=== PATIENT | female | born 1945 | race Caucasian/White ===

== ENCOUNTER 2021-03-06 16:12 | Emergency (ER) | payer MEDICARE, SELFPAY ==
[2021-03-06 16:22] VITALS: BP 146/71; PULSE 102; RESP 16; TEMP 36.4; O2SAT 99
--- NOTE | 2021-03-06 16:29 | ED.FEMALEGU ---
HPI - Female Genitourinary General Chief complaint: Urogenital-Female Stated complaint: POS UTI Time Seen by Provider: 03/06/21 16:25 Source: patient, RN notes reviewed and old records reviewed Mode of arrival: ambulatory Limitations: no limitations History of Present Illness HPI Narrative: 75-year-old female who presents to care with complaints of perineal pressure with burning with urination for the past 3 days. 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 Patient denies any fevers, chills or sweats, denies any flank pain or any lower abdominal pain, nausea or any vomiting. Related Data Home Medications Medication Instructions Recorded Confirmed Klor-Con 03/06/21 Zetia 03/06/21 hydrochlorothiazide 03/06/21 Allergies Allergy/AdvReac Type Severity Reaction Status Date / Time Sulfa (Sulfonamide Allergy Unknown Verified 03/06/21 16:23 Antibiotics) Review of Systems Review of Systems: CONSTITUTIONAL: Denies fever, chills, or sweats. EYES: Denies visual changes, redness, or discharge. ENT: Denies rhinorrhea, congestion, sore throat, or otalgia. CARDIOVASCULAR: Denies chest pain, palpitations, or edema. RESPIRATORY: Denies cough or dyspnea. GASTROINTESTINAL: Denies abdominal pain, nausea, vomiting, or diarrhea. GENITOURINARY: Positive for dysuria or hematuria. SKIN: Denies rash or itching. MUSCULOSKELETAL: Denies back pain, joint pain, or myalgia. NEUROLOGIC: Denies headache, numbness, or weakness. PSYCHIATRIC: Denies anxiety or depression. All systems reviewed & are unremarkable except as noted in HPI and below PMFSH Past Medical History Medical History (Updated 03/06/21 @ 16:57 by Anita Adair NP) Elevated lipids Hypertension Lichen planus Surgical History Surgical History (Updated 03/06/21 @ 16:58 by Anita Adair NP) H/O breast biopsy H/O: hysterectomy Family History Family History (Updated 03/06/21 @ 16:58 by Anita Adair NP) Other Family history non-contributory Social History Social History (Updated 03/06/21 @ 16:57 by Anita Adair NP) Smoking status: Never smoker Alcohol intake: current Alcohol use details: rare alcohol Substance use type: does not use Living arrangements: with family Gender identity (if verbalized by the patient): Female Comments At time of signature, agree with nursing past medical, surgical, social and family history. There is no relevant family history pertinent to the presenting complaint Exam Narrative: GENERAL: Well-appearing, well-nourished, and in no acute distress. HEAD: Normocephalic, atraumatic. EYES: PERRLA and EOMI. ENT: Nares clear, no rhinorrhea or epistaxis. Mucous membranes moist. TM's normal with good light reflex, throat pink with no lesions or exudates,no tonsil enlargement. NECK: Supple.no lymphadenopathy CHEST: Clear to auscultation. No respiratory distress. SaO2 99% on room air HEART: Regular rate and rhythm. No murmur heard. Normal peripheral pulses. ABDOMEN: Soft, nontender, nondistended, normal active bowel sounds.pressure sensation in perineal area with burning with urination EXTREMITIES: Normal range of motion. No edema. SKIN: Warm, dry, no rash. NEURO: No focal deficits. Alert and oriented x3, no flank pain MDM - Female Genitourinary Differential Diagnosis Differential diagnosis: Likely urinary tract infection, cervicitis, vaginitis, cystitis and other (Dysuria) Medical Records Attestation: I reviewed the patient's medical records. Lab Data Attestation: I reviewed the patient's lab results. Lab results narrative: Urine dip; glucose negative, bilirubin negative, ketones negative, specific gravity greater than or equal to 1.030, blood 2+, pH 5.5, protein negative, uro bilirubin 0.2, nit
== END 2021-03-06 16:46 | disposition home or self-care (01) ==
PROVIDERS: Emergency Provider Registered Nurse
DX: N39.0 Urinary tract infection, site not specified (principal); I10 Essential (primary) hypertension; L43.9 Lichen planus, unspecified
CPT/HCPCS: 81003; 87077; 87086; 87186; 99213; G0463

== ENCOUNTER 2021-07-11 10:04 | Emergency (ER) | payer MEDICARE, SELFPAY ==
--- NOTE | 2021-07-11 10:10 | ED.FEMALEGU ---
HPI - Female Genitourinary General Chief complaint: Urogenital-Female Stated complaint: Urinary pain Time Seen by Provider: 07/11/21 10:15 Source: patient Mode of arrival: ambulatory Limitations: no limitations History of Present Illness HPI Narrative: Jessica Hernandez is a 75 yo female w PMH of high cholesterol, HTN, who comes with c/o buring and frequency of urination x 2 days. Related Data Home Medications Medication Instructions Recorded Confirmed Klor-Con 03/06/21 Zetia 03/06/21 hydrochlorothiazide 03/06/21 Allergies Allergy/AdvReac Type Severity Reaction Status Date / Time Sulfa (Sulfonamide Allergy Unknown Verified 03/06/21 16:23 Antibiotics) Review of Systems Review of Systems: CONSTITUTIONAL: Denies fever, chills, sweats. EYES: Denies visual changes, redness, discharge. ENT: Denies rhinorrhea, congestion, sore throat, otalgia. CARDIOVASCULAR: Denies chest pain, palpitations, edema. RESPIRATORY: Has dyspnea, wheezing, cough GASTROINTESTINAL: Denies abdominal pain, nausea, vomiting, diarrhea. GENITOURINARY: Denies dysuria, hematuria, abnormal discharge SKIN: Denies rash or itching. NEUROLOGIC: Denies numbness, or focal weakness. PSYCHIATRIC: Denies anxiety or depression. PMFSH Past Medical History Medical History Elevated lipids Hypertension Lichen planus Surgical History Surgical History H/O breast biopsy H/O: hysterectomy Family History Family History Other Family history non-contributory Social History Social History Smoking status: Never smoker Alcohol intake: current Alcohol use details: rare alcohol Substance use type: does not use Gender identity (if verbalized by the patient): Female Exam Narrative: GENERAL: This is a well-nourished, well-developed patient, in mild distress. HEAD: normocephalic, atraumatic. EYES: Sclera clear/white. Vision is grossly intact. EARS: External ears normal. Hearing grossly intact. NOSE: External nose normal without nasal discharge, nares without redness, no rhinorrhea. THROAT: Mucous membranes moist, p NECK: Neck supple, non-tender CARDIOVASCULAR: Regular rate and rhythm without murmurs, gallops, or rubs. RESPIRATORY: Clear to auscultation. Breath sounds equal bilaterally. No wheezes, rales, or rhonchi. GASTROINTESTINAL: Abdomen soft, SKIN: warm, intact with no suspicious lesions or rash, good texture and turgor. NEURO: awake, alert, and oriented to person, place and time. There were no obvious focal neurologic abnormalities. Steady gait EXTREMITIES: Normal range of motion. BACK: Nontender without deformity Course Course Emergency Course: Patient comes with [facility]uria to [facility] x2 days UA shows nitate +, leuk 2+, + blood Treated with augmentin x 7 days Level of Care: Express Care Visit Vital Signs Vital signs: Vital Signs Temperature 97.2 F L 07/11/21 10:13 Pulse Rate 107 H 07/11/21 10:13 Respiratory Rate 16 07/11/21 10:13 Blood Pressure 167/87 H 07/11/21 10:13 Pulse Oximetry 98 07/11/21 10:13 Temperature 97.2 F L 07/11/21 10:13 Pulse Rate 107 H 07/11/21 10:13 Respiratory Rate 16 07/11/21 10:13 Blood Pressure 167/87 H 07/11/21 10:13 Pulse Oximetry 98 07/11/21 10:13 MDM - Female Genitourinary Differential Diagnosis Differential diagnosis: Likely urinary tract infection, cystitis and other Lab Data Labs: Urine Glucose Negative Reference Range: Negative Urine Bilirubin Negative Reference Range: Negative Urine Ketone Negative Reference Range: Negative Urine Spe
[2021-07-11 10:13] VITALS: BP 167/87; PULSE 107; RESP 16; TEMP 36.2; O2SAT 98
== END 2021-07-11 10:35 | disposition home or self-care (01) ==
PROVIDERS: Emergency Provider Nurse Practitioner
DX: N30.90 Cystitis, unspecified without hematuria (principal); I10 Essential (primary) hypertension; E78.00 Pure hypercholesterolemia, unspecified; L43.9 Lichen planus, unspecified
CPT/HCPCS: 81003; 87077; 87086; 87186; 99213; G0463

== ENCOUNTER 2022-05-06 13:21 | Emergency (ER) | payer MEDICARE, SELFPAY ==
[2022-05-06 13:31] VITALS: BP 155/65; PULSE 105; RESP 16; TEMP 36.4; O2SAT 99
[2022-05-06 13:32] VITALS: BP 155/65; PULSE 105; RESP 16; TEMP 36.4; O2SAT 99
--- NOTE | 2022-05-06 13:53 | ED.GENADULT ---
HPI - General Adult General Chief complaint: Back Pain/Injury Stated complaint: lt leg/ buttock pain Time Seen by Provider: 05/06/22 13:39 Source: patient Mode of arrival: wheelchair Limitations: no limitations History of Present Illness HPI narrative: This patient presents today complaining of pain to her left buttock radiating to her left calf x2 days, worse since yesterday. Denies back pain, numbness or tingling in the extremities or genitalia, denies loss of bowel or bladder control. Denies any injury or trauma, heavy lifting. She currently rates her pain 4/10 while sitting, because increases to 10/10 with standing. She has been taking Tylenol, ibuprofen, and using [id number] back pain patches with some mild relief. Denies history of chronic back pain. Related Data Home Medications Medication Instructions Recorded Confirmed ezetimibe 10 mg tablet 10 mg PO DAILY 05/06/22 05/06/22 hydrochlorothiazide 25 mg tablet 25 mg PO DAILY 05/06/22 05/06/22 potassium chloride 10 mEq 10 meq PO DAILY 05/06/22 05/06/22 tablet,extended release(part/cryst) (Klor-Con M) Allergies Allergy/AdvReac Type Severity Reaction Status Date / Time Sulfa (Sulfonamide Allergy Unknown Verified 05/06/22 13:30 Antibiotics) Review of Systems Review of Systems: CONSTITUTIONAL: Denies body aches, fever, chills, or sweats. EYES: Denies visual changes, redness, or discharge. ENT: Denies rhinorrhea, congestion, sore throat, or otalgia. CARDIOVASCULAR: Denies chest pain, palpitations, or edema. RESPIRATORY: Denies cough or dyspnea. GASTROINTESTINAL: Denies abdominal pain, nausea, vomiting, or diarrhea. GENITOURINARY: Denies dysuria or hematuria. SKIN: Denies rash, itching, or wounds. MUSCULOSKELETAL: Denies back pain, joint pain. + pain to left buttock and left leg NEUROLOGIC: Denies headache, numbness, tingling, or weakness. PSYCH: Denies depression or anxiety. [facility] Past Medical History Medical History Elevated lipids Hypertension Lichen planus Surgical History Surgical History H/O breast biopsy H/O: hysterectomy Family History Family History Other Family history non-contributory Social History Social History Smoking status: Never smoker Alcohol intake: current Alcohol use details: rare alcohol Substance use type: does not use Living arrangements: with family Gender identity (if verbalized by the patient): Female Comments At time of signature, I have reviewed and agree with nursing past medical, surgical, social and family history unless otherwise noted. Please see nursing chart for further information. There is no relevant family history pertinent to the presenting complaint Exam Narrative: GENERAL: Well-appearing, well-nourished, and in no acute distress. HEAD: Normocephalic, atraumatic. EYES: EOMI. No redness or drainage. Conjunctivae normal. ENT: Mucous membranes pink and moist. NECK: Normal AROM. CHEST: No respiratory distress. MUSCULOSKELETAL: No bony tenderness of the spine. No lumbar paraspinal muscle tenderness. Patient has tenderness of the left buttock radiating down the left leg with palpation. Patient has significant pain in the left leg when asked to go from sitting to standing position. Distal sensation intact. Saddle sensation intact. Capillary refill normal. Pedal pulses normal. Foot push and pulls equal and strong. EXTREMITIES: Normal range of motion. No edema. SKIN: Warm, dry, no rash. Capillary refill normal. Normal skin turgor. NEURO: No focal deficits. Alert and oriented x3. Gait steady. PSYCH: Normal affect. No signs of depression or anxiety. Course Course Level of Care: Express Care Visit Vital Signs Vital signs:
== END 2022-05-06 14:02 | disposition home or self-care (01) ==
PROVIDERS: Emergency Provider Nurse Practitioner; PCP Internal Medicine
DX: M54.32 Sciatica, left side (principal); I10 Essential (primary) hypertension; L43.9 Lichen planus, unspecified
CPT/HCPCS: 99213; G0463

== ENCOUNTER 2024-02-20 13:36 | Observation (INO) | payer MEDICARE, SELFPAY ==
[2024-02-20] VITALS (36 sets, daily range): BP systolic 110–153; BP diastolic 61–116; PULSE 64–101; RESP 12–25; TEMP 36.4–36.6; O2SAT 96–100; BMI 26.1
--- NOTE | ~2024-02-20 | XR_ITS ---
XR chest 2V Ordering provider: Trini Castro History: 78 years Female with . CP . Comparison: None. FINDINGS: MEDIASTINUM: The cardiac silhouette is not enlarged. LUNGS: No infiltrates, effusions or pneumothorax. Fibrotic changes are seen in the lower lobes. OTHER: No free air under the diaphragm. Degenerative spine. IMPRESSION: No acute cardiopulmonary pathology. Reviewed, dictated and finalized at location A. R VEHICLES SUPERVISOR
--- NOTE | ~2024-02-20 | CT_ITS ---
EXAMINATION: CTA chest PE protocol DATE: 02/22/2024 12:46 INDICATION: Chest pain. Shortness of breath. TECHNIQUE: Computed tomography angiography (CTA) of the chest was performed with 100 mL Omnipaque-350 intravenous contrast timed to evaluate the pulmonary arteries. Coronal maximum intensity projection 3D-reconstructions were created by the technologist. Automated exposure control and iterative reconst ruction technique were employed. The dose-length product was 370.28 mGy-cm. COMPARISON: Chest 2 views 02/20/2024 FINDINGS: There is mild scarring at the lung apices. There is mild atelectasis bilaterally. No pleura l effusion. There is a 10 mm nodule in right thyroid lobe, not clinically significant. The heart size is normal. No pericardial effusion. There is no pulmonary embolus. There is mild mediastinal and lef t hilar lymphadenopathy, likely reactive. There is a small sliding hiatal hernia. There are gallstone s versus sludge in the gallbladder. There is moderate thoracic spondylosis and severe cervical spondy losis. IMPRESSION: 1. No pulmonary embolus. Reviewed, dictated and finalized at location A. ECT SURVEYOR IMPRESSION: 1. No pulmonary embolus.
--- NOTE | ~2024-02-20 | NM_ITS ---
EXAMINATION: NM ron stress w perfusion DATE: 02/21/2024 13:57 INDICATION: Chest pain. TECHNIQUE: Rest images were obtained following intravenous administration of 11 mCi Tc99m tetrofosmin (Myoview). The patient was infused intravenously with Lexiscan (regadenoson). Then, 33.7 mCi Tc99m t etrofosmin (Myoview) was administered intravenously, and stress images were obtained. Data was recons tructed into short axis and horizontal and vertical long axis SPECT images. Gated SPECT images were a lso obtained. COMPARISON: None. FINDINGS: There is no definite reversible or fixed perfusion abnormality to suggest ischemia or infar ction. There is no segmental wall motion abnormality. Left ventricular ejection fraction measures > 70%. IMPRESSION: 1. No definite ischemia or infarct. 2. Normal left ventricular ejection fraction measuring >70%. Reviewed, dictated and finalized at location A. OR DIRECTOR FINANCE
--- NOTE | 2024-02-20 13:38 | ECG_ITS ---
Test Date: 2024-02-20 13:47:40 Measurements Intervals [place] Rate: 92 P: 54 [place]: 166 QRS: 25 QRSD: 92 T: 29 QT: 364 QTc: 452 Interpretive Statements SINUS RHYTHM WITH FREQUENT VENTRICULAR PREMATURE COMPLEXES INCOMPLETE RIGHT BUNDLE BRANCH BLOCK BORDERLINE ST-T WAVE ABNORMALITY- INFERIOR LEADS BASELINE ARTIFACT- I, II, III, AVR, AVL, AVF ABNORMAL ECG No previous ECG available for comparison Electronically Signed On 02-20-2024 14:23:27 LOCKSTITCH COAT JOINER by Eduin Cristina D.O.
--- NOTE | 2024-02-20 14:19 | ED_ITS ---
HPI - SOB/Dyspnea General Chief Complaint: Shortness of Breath/Dyspnea <Trini Castro PA-C - Last Filed: 02/21/24 11:05> Stated Complaint: SOB, palpitations <Trini Castro PA-C - Last Filed: 02/21/24 11:05> Time Seen by Provider: 02/20/24 14:19 <Trini Castro PA-C - Last Filed: 02/21/24 11:05> Focused HPI: This is a 78 year old female that presents to the ER for shortness of breath. Reports she feels like her heart races and is irregular. Reports weakness, pressure in her chest. Ongoing over the last 4 days. GENERAL: Elderly, well-nourished, and in no acute distress. HEAD: Normocephalic, atraumatic. CHEST: Clear to auscultation. ?No respiratory distress. HEART: Regular rate and rhythm.? NEURO: ?Alert and oriented x3. Patient screened in triage and initial orders placed.? ?Additional care and di sposition to be based upon?diagnostic testing and treatment. <Trini Castro PA-C - Last Filed: 02/21/24 11:05> History of Present Illness HPI Narrative: Agree with HPI. Exertional chest and back tightness over last 4-5 days. No diaphoresis. No history of cardiac disease. Does have history of hypertension. Symptoms improved with rest. Feels like she may have an irregula r heartbeat, she does have PVCs in the room but she does not feel them when questioned. <Matt Butler MD - Last Filed: 02/20/24 22:04> Related Data Home Medications: Home Medications Medication Instructions Recorded Confirmed ezetimibe 10 mg tablet 10 mg PO DAILY 05/06/22 02/20/24 hydrochlorothiazide 25 mg tablet 25 mg PO DAILY 05/06/22 02/20/24 potassium chloride 10 mEq 10 meq PO BID 05/06/22 02/20/24 tablet,extended release(part/cryst) (Klor-Con M) cholecalciferol (vitamin D3) 50 50 mcg PO DAILY 02/20/24 02/20/24 mcg (2,000 unit) capsule (Vitamin D3) <Trini Castro PA-C - Last Filed: 02/21/24 11:05> Allergies/Adverse Reactions: Allergies Allergy/AdvReac Type Severity Reaction Status Date / Time Sulfa (Sulfonamide Allergy Rash Verified 02/20/24 22:48 Antibiotics) <Trini Castro PA-C - Last Filed: 02/21/24 11:05> Review of Systems Review of Systems: All systems reviewed & are unremarkable except as noted in HPI and below <Matt Butler MD - Last Filed: 02/20/24 22:04> Constitutional: Constitutional: Reports no additional constitutional complaints <Matt Butler MD - Last Filed: 02/20/24 22:04> Cardiovascular: Cardiovascular: Reports chest pain, Denies rapid heart rate and Denies radiating jaw, neck or arm pain <Matt Butler MD - Last Filed: 02/20/24 22:04> Respiratory: Respiratory: Denies chest congestion, Denies cough, Reports dyspnea and Denies wheezing <Matt Butler MD - Last Filed: 02/20/24 22:04> Gastrointestinal: Gastrointestinal: Reports no additional gastrointestinal complaints <Matt Butler MD - Last Filed: 02/20/24 22:04> Genitourinary: Genitourinary: Reports no additional female genitourinary complaints <Matt Butler MD - Last Filed: 02/20/24 22:04> Musculoskeletal: Musculoskeletal: Reports no additional musculoskeletal complaints <Matt Butler MD - Last Filed: 02/20/24 22:04> [facility] Past Medical History Medical History: Medical History (Updated 02/21/24 @ 10:30 by Jesus Hensley MD) Elevated lipids Hypertension Lichen planus <Trini Castro PA-C - Last Filed: 02/21/24 11:05> Surgical History Surgical History: Surgical History H/O breast biopsy H/O: hysterectomy <Trini Castro PA-C - Last Filed: 02/21/24 11:05> Family History Family History: Family History Mother Cerebrovascular accident Diabetes mellitus Grandparent Cerebrovascular accident Father Hypertension Heart valve replaced Lung cancer Other Family history non-contributory <Trini Castro PA-C - Last Filed: 02/21/24 11:05> Social History Social History: Social History Smoking status: Never smoker Alcohol intake: current Alcohol use details: rare alcohol Substance use type: does not use Do You Feel Safe in your Home?: Yes Lack of Transportation: No Lack of Food: Never True Current Housing: I Have Housing Concerned About Future Housing: No Difficulty Paying Gas/Electric Bills: No Difficulty Paying for Meds: No Currently Unemployed: No Education: High School Diploma/GED Difficulty w/ Childcare or Family Care: No Living arrangements: with family Gender identity (if verbalized by the patient): Female Spiritual care concerns: No <Trini Castro PA-C - Last Filed: 02/21/24 11:05> Exam Narrative: GENERAL: Well-appearing, well-nourished, and in no acute distress. HEAD: Normocephalic, atraumatic. ENT: Mucous membranes moist. NECK: Supple. CHEST: Clear to auscultation. No respiratory distress. HEART: Regular rate and rhythm. Normal peripheral pulses. ABDOMEN: Soft, nontender, nondistended. EXTREMITIES: Normal range of motion. No edema. SKIN: Warm, dry, no rash. NEURO: Alert and oriented x3. PSYCH: Normal mood and affect. <Matt Butler MD - Last Filed: 02/20/24 22:04> Course Course Emergency Course: Discussed with Dr. Hensley. No chest pain this time. Admit for observation with elevated heart score concerns for anginal chest pain. <Matt Butler MD - Last Filed: 02/20/24 22:04> Vital Signs Vital signs: Vital Signs Temperature 97.5 F L 02/20/24 13:38 Pulse Rate 101 H 02/20/24 13:38 Respiratory Rate 15 02/20/24 13:38 Blood Pressure 153/95 H 02/20/24 13:38 Pulse Oximetry 99 02/20/24 13:38 Oxygen Delivery Room Air 02/20/24 13:38 Temperature 98 F 02/21/24 08:00 Pulse Rate 79 02/21/24 10:00 Respiratory Rate 16 02/21/24 08:00 Blood Pressure 106/54 L 02/21/24 08:00 Pulse Oximetry 100 02/21/24 08:00 Oxygen Delivery Room Air 02/21/24 08:00 <Trini Castro PA-C - Last Filed: 02/21/24 11:05> Vital Signs Temperature 97.5 F L 02/20/24 13:38 Pulse Rate 101 H 02/20/24 13:38 Respiratory Rate 15 02/20/24 13:38 Blood Pressure 153/95 H 02/20/24 13:38 Pulse Oximetry 99 02/20/24 13:38 Oxygen Delivery Room Air 02/20/24 13:38 Temperature 98 F 02/21/24 08:00 Pulse Rate 79 02/21/24 10:00 Respiratory Rate 16 02/21/24 08:00 Blood Pressure 106/54 L 02/21/24 08:00 Pulse Oximetry 100 02/21/24 08:00 Oxygen Delivery Room Air 02/21/24 08:00 <Matt Butler MD - Last Filed: 02/20/24 22:04> MDM - SOB/Dyspnea Lab Data Result diagrams: 02/20/24 17:02 02/20/24 17:02 <Trini Castro PA-C - Last Filed: 02/21/24 11:05> Labs: Lab Results 02/20/24 02/20/24 Range/Units 17:02 20:55 WBC 7.3 (4.5-10.0) K/mm3 RBC 4.35 (4.2-5.4) M/mm3 Hgb 13.3 (12.0-15.0) g/dL Hct 39.4 (37.0-47.0) % MCV 90.6 (80-100) fl MCH 30.6 (26-34) pg MCHC 33.8 (32-36) g/dl RDW 14.0 (11.5-14.5) % Plt Count 239 (150-375) k/mm3 MPV 11.9 H (7.4-10.4) fl Immature Gran % (Auto) 0.4 (0-0.5) % Neut % (Auto) 68.6 (45.5-73.1) % Lymph % (Auto) 21.1 (18.3-44.2) % Stevens % (Auto) 8.2 (2.6-8.5) % Eos % (Auto) 1.2 (0-4.4) % Baso % (Auto) 0.5 (0.2-1.2) % Lymph # (Auto) 1.54 (0.9-3.2) K/mm3 Stevens # (Auto) 0.6 (0.1-0.6) K/mm3 Eos # (Auto) 0.1 (0-0.3) K/mm3 Baso # (Auto) 0.0 (0.0-0.1) K/mm3 Abs Immat Gran (auto) 0.03 (0.00-0.031) K/mm3 Absolute Neuts (auto) 5.0 (1.3-6.7) K/mm3 Absolute Nucleated RBC 0.000 (0.0-0.012) K/mm3 Nucleated RBC % 0.0 (0.0-0.2) % PT 14.0 (11.1-14.7) Seconds INR 1.1 APTT 27.9 (22.3-36.8) Seconds Sodium 136 L (137-145) mmol/L Potassium 3.3 L (3.4-5.0) mmol/L Chloride 100 (98-107) mmol/L Carbon Dioxide 30 (22-30) mmol/L Anion Gap 6 (4-12) mmol/L BUN 20 H (7-17) mg/dL Creatinine 0.80 (0.7-1.0) mg/dL Estim Creat Clear Calc 42 ml/min Estimated GFR > 60 (59 - ) Glucose 99 (65-110) mg/dL Calcium 9.1 (8.4-10.2) mg/dL Phosphorus 3.1 (2.5-4.5) mg/dL Magnesium 1.8 (1.6-2.3) mg/dL Total Bilirubin 0.7 (0.2-1.3) mg/dL AST 44 H (14-36) U/L ALT 18 (6-35) U/L Alkaline Phosphatase 91 (38-126) U/L Troponin I < 0.012 < 0.012 (0.000-0.034) ng/mL Total Protein 8.0 (6.3-8.2) g/dL Albumin 4.5 (3.5-5.1) g/dL Triglycerides 154 H (<150) mg/dL Cholesterol 197 (0-200) mg/dL LDL Cholesterol Direct 107 mg/dL HDL Direct 46 mg/dL Lipase 146 (23-300) U/L TSH (Reflex) 2.680 (0.465-4.68) uIU/mL <Trini Castro PA-C - Last Filed: 02/21/24 11:05> Lab Results 02/20/24 02/20/24 Range/Units 17:02 20:55 WBC 7.3 (4.5-10.0) K/mm3 RBC 4.35 (4.2-5.4) M/mm3 Hgb 13.3 (12.0-15.0) g/dL Hct 39.4 (37.0-47.0) % MCV 90.6 (80-100) fl MCH 30.6 (26-34) pg MCHC 33.8 (32-36) g/dl RDW 14.0 (11.5-14.5) % Plt Count 239 (150-375) k/mm3 MPV 11.9 H (7.4-10.4) fl Immature Gran % (Auto) 0.4 (0-0.5) % Neut % (Auto) 68.6 (45.5-73.1) % Lymph % (Auto) 21.1 (18.3-44.2) % Stevens % (Auto) 8.2 (2.6-8.5) % Eos % (Auto) 1.2 (0-4.4) % Baso % (Auto) 0.5 (0.2-1.2) % Lymph # (Auto) 1.54 (0.9-3.2) K/mm3 Stevens # (Auto) 0.6 (0.1-0.6) K/mm3 Eos # (Auto) 0.1 (0-0.3) K/mm3 Baso # (Auto) 0.0 (0.0-0.1) K/mm3 Abs Immat Gran (auto) 0.03 (0.00-0.031) K/mm3 Absolute Neuts (auto) 5.0 (1.3-6.7) K/mm3 Absolute Nucleated RBC 0.000 (0.0-0.012) K/mm3 Nucleated RBC % 0.0 (0.0-0.2) % PT 14.0 (11.1-14.7) Seconds INR 1.1 APTT 27.9 (22.3-36.8) Seconds Sodium 136 L (137-145) mmol/L Potassium 3.3 L (3.4-5.0) mmol/L Chloride 100 (98-107) mmol/L Carbon Dioxide 30 (22-30) mmol/L Anion Gap 6 (4-12) mmol/L BUN 20 H (7-17) mg/dL Creatinine 0.80 (0.7-1.0) mg/dL Estim Creat Clear Calc 42 ml/min Estimated GFR > 60 (59 - ) Glucose 99 (65-110) mg/dL Calcium 9.1 (8.4-10.2) mg/dL Phosphorus 3.1 (2.5-4.5) mg/dL Magnesium 1.8 (1.6-2.3) mg/dL Total Bilirubin 0.7 (0.2-1.3) mg/dL AST 44 H (14-36) U/L ALT 18 (6-35) U/L Alkaline Phosphatase 91 (38-126) U/L Troponin I < 0.012 < 0.012 (0.000-0.034) ng/mL Total Protein 8.0 (6.3-8.2) g/dL Albumin 4.5 (3.5-5.1) g/dL Triglycerides 154 H (<150) mg/dL Cholesterol 197 (0-200) mg/dL LDL Cholesterol Direct 107 mg/dL HDL Direct 46 mg/dL Lipase 146 (23-300) U/L TSH (Reflex) 2.680 (0.465-4.68) uIU/mL <Matt Butler MD - Last Filed: 02/20/24 22:04> Imaging Data Radiologist's impression: ITS Impressions Chest X-Ray 02/20/24 15:33 IMPRESSION: No acute cardiopulmonary pathology. <Matt Butler MD - Last Filed: 02/20/24 22:04> ECG Data EKG #1: ECG completion date: 02/20/24 <Matt Butler MD - Last Filed: 02/20/24 22:04> ECG completion time: 13:47 <Matt Butler MD - Last Filed: 02/20/24 22:04> EKG Interpretation: normal rate (92), sinus rhythm, PVCs, normal QRS, normal QT and NL axis <Matt Butler MD - Last Filed: 02/20/24 22:04> Critical Care Time Critical Care Time Critical Care Time: No <Trini Castro PA-C - Last Filed: 02/21/24 11:05> Discharge Plan Discharge Clinical Impression: Angina of effort <Trini Castro PA-C - Last Filed: 02/21/24 11:05> Patient Disposition: Still a Patient <Trini Castro PA-C - Last Filed: 02/21/24 11:05> Condition: Stable <Trini Castro PA-C - Last Filed: 02/21/24 11:05> Quality HEART score for chest pain patients History: moderately suspicious <Matt Butler MD - Last Filed: 02/20/24 22:04> ECG: non specific repolarization disturbance/LBTB/PM <Matt Butler MD - Last Filed: 02/20/24 22:04> Age: > or = to 65 years <Matt Butler MD - Last Filed: 02/20/24 22:04> Risk factors: 1 or 2 risk factors <Matt Butler MD - Last Filed: 02/20/24 22:04> Troponin: < or = to 1x normal limit <Matt Butler MD - Last Filed: 02/20/24 22 :04> Heart score: 5 <Trini Castro PA-C - Last Filed: 02/21/24 11:05> 5 <Matt Butler MD - Last Filed: 02/20/24 22:04>
[2024-02-20 17:07] LABS: Basophils Percent Auto 0.5 % (0.2-1.2); Eosinophils Absolute Auto 0.1 K/mm3 (0-0.3); Eosinophils Percent Auto 1.2 % (0-4.4); Hematocrit 39.4 % (37.0-47.0); Hemoglobin 13.3 g/dL (12.0-15.0); Immature Granulocyte Absolute 0.03 K/mm3 (0.00-0.031); Immature Granulocyte Percent A 0.4 % (0-0.5); Lymphocytes Absolute Auto 1.54 K/mm3 (0.9-3.2); Lymphocytes Percent Auto 21.1 % (18.3-44.2); Mean Corpuscular HGB Conc 33.8 g/dl (32-36); Mean Corpuscular Hemoglobin 30.6 pg (26-34); Mean Corpuscular Volume 90.6 fl (80-100); Mean Platelet Volume 11.9 fl (7.4-10.4); Monocytes Absolute Auto 0.6 K/mm3 (0.1-0.6); Monocytes Percent Auto 8.2 % (2.6-8.5); Neutrophils Percent Auto 68.6 % (45.5-73.1); Platelet Count Result 239 k/mm3 (150-375); Red Blood Count 4.35 M/mm3 (4.2-5.4); White Blood Count 7.3 K/mm3 (4.5-10.0)
[2024-02-20 17:17] LABS: Alanine Aminotransferase 18 U/L (6-35); Albumin Level 4.5 g/dL (3.5-5.1); Alkaline Phosphatase 91 U/L (38-126); Anion Gap 6 mmol/L (4-12); Aspartate Amino Transferase 44 U/L (14-36); Bilirubin,Total 0.7 mg/dL (0.2-1.3); Blood Urea Nitrogen 20 mg/dL (7-17); Calcium 9.1 mg/dL (8.4-10.2); Carbon Dioxide 30 mmol/L (22-30); Chloride 100 mmol/L (98-107); Estimated CRCL calculation 42 ml/min; Estimated Glomerular Filt Rate > 60; Glucose 99 mg/dL (65-110); Lipase 146 U/L (23-300); Potassium 3.3 mmol/L (3.4-5.0); Sodium 136 mmol/L (137-145)
[2024-02-20 17:18] LABS: INR 1.1; Partial Thromboplastin Time 27.9 Seconds (22.3-36.8)
[2024-02-20 17:29] LABS: Troponin I < 0.012 ng/mL (0.000-0.034)
--- NOTE | 2024-02-20 20:02 | ECG_ITS ---
Test Date: 2024-02-20 20:30:34 Measurements Intervals [place] Rate: 68 P: 54 [place]: 174 QRS: 28 QRSD: 98 T: 20 QT: 408 QTc: 436 Interpretive Statements SINUS RHYTHM INCOMPLETE RIGHT BUNDLE BRANCH BLOCK BASELINE ARTIFACT- I, III, AVL BORDERLINE ECG Compared to ECG 02/20/2024 13:47:40 PREMATURE VENTRICULAR COMPLEXES NO LONGER PRESENT Electronically Signed On 02-20-2024 20:33:40 HEADING UP MACHINE OPERATOR by Eduin Cristina D.O.
[2024-02-20 21:28] LABS: Troponin I < 0.012 ng/mL (0.000-0.034)
--- NOTE | 2024-02-20 21:52 | EST_ITS ---
Patient Info Name: Jessica Claudio Age: 78 years : 1945 Gender: Female Ht: 64 in Wt: 154 lbs BSA: 1.79 m2 HR: 82 bpm BP: 140 / 74 mmHg Exam Date: 02/21/2024 12:23 PM Exam Location: Echo Lab Patient Status: Outpatient Admit Date: 02/20/2024 Staff Ordering Physician: Matt Butler MD Attending Provider: Gissell Trujillo DO Exercise Technologist: Liza BE [facility] Exercise Physician: Jesus Hensley MD Exam Type: CA stress ron w NM Study Info A regadenoson stress test was performed. Summary 1. Please correlate with nuclear medicine images, reported separately. 2. No abnormal ST-T wave changes with lexiscan. Protocol: Lexiscan Stress ECG Details Stage: REST Duration (min): 1 min : 48 sec HR (bpm): 79 SBP (mmHg): 140 DBP (mmHg): 74 Stage: REST Duration (min): 8 min : 17 sec HR (bpm): 86 SBP (mmHg): 140 DBP (mmHg): 74 Stage: STAGE 1 Duration (min): 1 min : 0 sec HR (bpm): 117 SBP (mmHg): 125 DBP (mmHg): 69 Stage: RECOVERY Duration (min): 1 min : 0 sec HR (bpm): 125 SBP (mmHg): 125 DBP (mmHg): 69 Stage: RECOVERY Duration (min): 2 min : 0 sec HR (bpm): 122 SBP (mmHg): 125 DBP (mmHg): 69 Stage: RECOVERY Duration (min): 3 min : 0 sec HR (bpm): 114 SBP (mmHg): 133 DBP (mmHg): 67 Stage: RECOVERY Duration (min): 4 min : 0 sec HR (bpm): 114 SBP (mmHg): 133 DBP (mmHg): 67 Stage: RECOVERY Duration (min): 4 min : 21 sec HR (bpm): 116 SBP (mmHg): 133 DBP (mmHg): 67 Rest HR: 86 bpm Peak HR: 126 bpm Rest Sys BP: 140 mmHg Peak Sys BP: 133 mmHg Max Pred HR: 140 bpm % Max Pred HR: 90 % Target HR: 119 bpm Max RPP: 16,758 bpm*mmHg BP Response: Normal blood pressure response Termination Reason: Completed protocol Cardiac Symptoms: None Total Time: 1 min : 0 sec Rest Adams BP: 74 mmHg Peak Adams BP: 67 mmHg Total Dose: 0.4 mg Resting ECG Normal sinus rhythm. PVCs. Stress ECG No abnormal ST/T wave changes with exercise. Arrhythmias Frequent PVCs. Report Signatures
[2024-02-20] MEDS: POTASSIUM CHLORIDE 20 MEQ ER TABLET 40 MEQ PO (22:10)
[2024-02-20] MEDS: ACETAMINOPHEN 325 MG TABLET 650 MG PO (23:06)
--- NOTE | 2024-02-20 23:32 | ADMGEN ---
2325: This patient, Jessica Claudio, was admitted to IMU Room 201-01. Patient/family oriented to hospital policies and general routines including ID bracelet, bed and alarms, visiting hours, pain management, procedures, bathroom and other care routines, personal items, smoking policy, room service/diet, and visiting hours. Information on how to activate the Rapid Response Team has been discussed. Patient/Family are encouraged to report perceived risks to care and to ask questions if they do not understand what they are told or what they should do.
[2024-02-20 23:39] LABS: Cholesterol 197 mg/dL (0-200); HDL Direct 46 mg/dL; Magnesium 1.8 mg/dL (1.6-2.3); Phosphorus 3.1 mg/dL (2.5-4.5); Triglycerides 154 mg/dL (<150)
[2024-02-20 23:50] LABS: LDL Cholesterol Direct 107 mg/dL
[2024-02-21] VITALS (17 sets, daily range): BP systolic 106–122; BP diastolic 49–66; PULSE 61–85; RESP 16–18; TEMP 36.5–37; O2SAT 94–100
--- NOTE | 2024-02-21 08:25 | PM.IMHP ---
H&P: HPI History of Present Illness Date/Time: 02/21/24 08:25 Chief Complaint: Shortness breath, palpitation and chest tightness Narrative: 78 years old lady with history of hypertension, hyperlipidemia, present ED with a chief complaint of shortness breath, palpitation. Patient has been having intermittent palpitation, shortness breast in past 3 days, and patient also has some chest tightness with exertion. Patient denies fever, chills. Patient also denies lightheadedness, focal weakness, abdomen pain, nausea vomiting diarrhea dysuria fever or chills. Upon arrival in the ED, patient was afebrile, blood pressure stable, patient is a tachycardia, pulse ox 99 on room air, lab showed med hyponatremia 136, hypokalemia 3.3, elevated BUN creatinine ratio 20/0.8. EKG showed sinus rhythm, PVCs, chest x-ray showed no acute cardiopulmonary issues. Troponins x2 negative. Review of Systems Review of Systems: ROS negative except above [facility] Past Medical History Medical History (Updated 02/21/24 @ 10:30 by Jesus Hensley MD) Elevated lipids Hypertension Lichen planus Surgical History Surgical History H/O breast biopsy H/O: hysterectomy Family History Family History Mother Cerebrovascular accident Diabetes mellitus Grandparent Cerebrovascular accident Father Hypertension Heart valve replaced Lung cancer Other Family history non-contributory Social History Social History Smoking status: Never smoker Alcohol intake: current Alcohol use details: rare alcohol Substance use type: does not use Do You Feel Safe in your Home?: Yes Lack of Transportation: No Lack of Food: Never True Current Housing: I Have Housing Concerned About Future Housing: No Difficulty Paying Gas/Electric Bills: No Difficulty Paying for Meds: No Currently Unemployed: No Education: High School Diploma/GED Difficulty w/ Childcare or Family Care: No Living arrangements: with family Gender identity (if verbalized by the patient): Female Spiritual care concerns: No Meds Home Medications and Allergies Home Medications Medication Instructions Recorded Confirmed Type ezetimibe 10 mg tablet 10 mg PO DAILY 05/06/22 02/20/24 History hydrochlorothiazide 25 mg tablet 25 mg PO DAILY 05/06/22 02/20/24 History potassium chloride 10 mEq 10 meq PO BID 05/06/22 02/20/24 History tablet,extended release(part/cryst) (Klor-Con M) cholecalciferol (vitamin D3) 50 50 mcg PO DAILY 02/20/24 02/20/24 History mcg (2,000 unit) capsule (Vitamin D3) Allergies Allergy/AdvReac Type Severity Reaction Status Date / Time Sulfa (Sulfonamide Allergy Rash Verified 02/20/24 22:48 Antibiotics) Vital Signs Vital Signs - 24 hr 02/20/24 13:38 02/20/24 16:29 02/20/24 16:29 Temperature 97.5 F L Pulse Rate 101 H 98 Respiratory Rate 15 Blood Pressure 153/95 H Pulse Oximetry 99 Oxygen Delivery Room Air Room Air 02/20/24 18:00 02/20/24 16:05 02/20/24 16:16 Temperature 97.9 F Pulse Rate 82 77 69 Respiratory Rate 16 16 15 Blood Pressure 126/80 136/69 146/61 H Pulse Oximetry 98 99 100 Oxygen Delivery 02/20/24 17:02 02/20/24 19:55 02/20/24 18:59 Temperature 97.9 F Pulse Rate 76 71 Respiratory Rate 12 17 Blood Pressure 146/67 H 120/64 129/62 Pulse Oximetry 99 97 Oxygen Delivery 02/20/24 19:00 02/20/24 19:01 02/20/24 19:15 Temperature Pulse Rate 75 90 72 Respiratory Rate 16 25 H 14 Blood Pressure 122/68 Pulse Oximetry 100 98 96 Oxygen Delivery 02/20/24 19:30 02/20/24 19:31 02/20/24 19:45 Temperature Pulse Rate 73 71 75 Respiratory Rate 13 14 15 Blood Pressure 123/63 Pulse Oximetry 96 96 96 Oxygen Delivery 02/20/24 23:17 02/20/24 20:00 02/20/24 20:01 Temperature 97.9 F Pulse Rate 80 71 72 Respiratory Rate 16 13 16 Blood Pressure 110/98 H 128/70 Pulse Oximetry 97 98 97 Oxygen Delivery 02/20/24 20:15 02/20/24 20:30 02/20/24 20:45 Temperature Pulse Rate 79 73 81 Respiratory Rate 15 13 16 Blood Pressure 140/64 Pulse Oximetry 97 98 Oxygen Delivery 02/20/24 20:58 02/20/24 21:00 02/20/24 21:01 Temperature Pulse Rate 68 68 73 Respiratory Rate 14 13 13 Blood Pressure 147/72 H 148/72 H Pulse Oximetry 99 98 97 Oxygen Delivery 02/20/24 21:15 02/20/24 21:30 02/20/24 21:31 Temperature Pulse Rate 72 77 76 Respiratory Rate 13 18 15 Blood Pressure 141/86 H Pulse Oximetry 96 99 98 Oxygen Delivery 02/20/24 21:45 02/20/24 22:00 02/20/24 22:01 Temperature Pulse Rate 71 73 72 Respiratory Rate 16 14 16 Blood Pressure 133/116 H Pulse Oximetry 98 96 99 Oxygen Delivery 02/20/24 22:15 02/20/24 22:30 02/20/24 22:31 Temperature Pulse Rate 75 72 64 Respiratory Rate 15 12 12 Blood Pressure 135/75 Pulse Oximetry 97 96 99 Oxygen Delivery 02/20/24 22:45 02/20/24 23:00 02/20/24 23:01 Temperature Pulse Rate 76 78 72 Respiratory Rate 15 13 14 Blood Pressure 140/64 Pulse Oximetry 98 96 99 Oxygen Delivery 02/20/24 23:33 02/21/24 00:00 02/21/24 02:00 Temperature 97.6 F Pulse Rate 67 71 68 Respiratory Rate 18 Blood Pressure 149/61 H Pulse Oximetry 99 Oxygen Delivery 02/21/24 04:00 02/21/24 05:36 Temperature 97.7 F Pulse Rate 71 74 Respiratory Rate 18 Blood Pressure 108/61 Pulse Oximetry 95 Oxygen Delivery Exam Narrative: GENERAL: Pleasant, in no acute distress. Well-nourished. - EYES: EOMI. Anicteric. - HENT: Moist mucous membranes. - LUNGS: Clear to auscultation bilaterally, no wheezing, rhonchi, or rales. - CARDIOVASCULAR: Regular rate and rhythm. No murmur. No JVD. - ABDOMEN: Soft, non-tender and non-distended. No palpable masses. - EXTREMITIES: No edema. Peripheral pulses 2+. Non-tender. - NEUROLOGIC: No focal neurological deficits. CN II-XII grossly intact. - PSYCHIATRIC: Awake, Alert and oriented x 3. Appropriate mood and affect. - SKIN: No rashes or lesions. Warm. - LYMPH: No cervical lymphadenopathy. H&P: Results Labs Labs: Short CBC 02/20/24 Range/Units 17:02 WBC 7.3 (4.5-10.0) K/mm3 Hgb 13.3 (12.0-15.0) g/dL Hct 39.4 (37.0-47.0) % Plt Count 239 (150-375) k/mm3 BMP 02/20/24 17:02 Sodium 136 L Potassium 3.3 L Chloride 100 Carbon Dioxide 30 BUN 20 H Creatinine 0.80 Glucose 99 Calcium 9.1 Cardiac Enzymes 02/20/24 02/20/24 Range/Units 17:02 20:55 Troponin I < 0.012 < 0.012 (0.000-0.034) ng/mL Liver Function 02/20/24 Range/Units 17:02 Total Bilirubin 0.7 (0.2-1.3) mg/dL AST 44 H (14-36) U/L ALT 18 (6-35) U/L Alkaline Phosphatase 91 (38-126) U/L Albumin 4.5 (3.5-5.1) g/dL Assessment and Plan Assessment and plan (1) Palpitations: Code(s): R00.2 - Palpitations Status: Acute (2) Dyspnea on exertion: Code(s): R06.09 - Other forms of dyspnea Status: Acute (3) Chest tightness: Code(s): R07.89 - Other chest pain Status: Acute (4) Hypertension: Code(s): I10 - Essential (primary) hypertension Status: Acute (5) Hyperlipidemia LDL goal <70: Code(s): E78.5 - Hyperlipidemia, unspecified Status: Acute Plan Chest tightness, palpitation, shortness breast On video rental clerk, 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 p.o. Follow-up stress test Essential hypertension Continue hydrochlorothiazide 25 mg daily p.o. start metoprolol 25 mg q.12 hours p.o. Optimize medication for better blood pressure control Hyperlipidemia Continue Ezetimibe 10 mg daily p.o. Continue Lipitor 20 mg daily p.o. Follow-up lipid panel Hospitalist MIPS Advance Care Plan I have confirmed that the patient's Advanced Care Plan is present, code status is documented, or surrogate decision maker is listed in patient medical record.: Yes Medication Reconciliation The patient is not eligible for med reconciliation; the patient is in a emergent medical situation where delaying treatment would jeopardize the patients health.: Yes
--- NOTE | 2024-02-21 08:33 | ECHO_ITS ---
Patient Info Name: Jessica Claudio Age: 78 years : 1945 Gender: Female Ht: 64 in Wt: 154 lbs BSA: 1.79 m2 HR: 88 bpm Heart Rhythm: Sinus Rhythm Technical Quality: Good Exam Date: 02/21/2024 10:53 AM Exam Location: Echo Lab Patient Status: Inpatient Admit Date: 02/20/2024 Staff Ordering Physician: Shannan Hernandez MD Care Director Rn: Tasha Staples RDCS Attending Provider: Gissell Trujillo DO Exam Type: CA echo doppler color flow Study Info Complete two-dimensional, color flow and Doppler transthoracic echocardiogram is performed. Summary 1. Complete two-dimensional, color flow and Doppler transthoracic echocardiogram is performed. 2. Left ventricular chamber dimension is normal. 3. Left ventricular systolic function is normal, estimated at 65-70%. 4. There is mildly increased left ventricular wall thickness. 5. The left ventricular diastolic function is grade I diastolic dysfunction. 6. Left atrial chamber dimension is mildly enlarged. 7. There is mild to moderate mitral valve regurgitation. 8. The mitral valve annulus is moderately calcified. 9. 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 10. There is mild tricuspid valve regurgitation. 11. There is mild aortic valve calcification. Left Ventricle Left ventricular chamber dimension is normal. Left ventricular systolic function is normal, estimated at 65-70%. There is mildly increased left ventricular wall thickness. The left ventricular diastolic function is grade I diastolic dysfunction. Right Ventricle Right ventricular chamber dimension is normal. Right ventricular systolic function is normal. Left Atria Left atrial chamber dimension is mildly enlarged. Right Atria Right atrial chamber dimension is normal. Aortic Valve The aortic valve is trileaflet. There is no aortic valve stenosis. There is trace aortic valve regurgitation. There is mild aortic valve calcification. Pulmonic Valve The pulmonic valve is normal. There is no pulmonic valve stenosis. There is trace pulmonic regurgitation. 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 There is no mitral valve stenosis. There is mild to moderate mitral valve regurgitation. The mitral valve annulus is moderately calcified. Tricuspid Valve The tricuspid valve leaflets are normal. There is no significant tricuspid valve stenosis. There is mild tricuspid valve regurgitation. No pulmonary hypertension, estimated pulmonary arterial systolic pressure is 30 mmHg. Pericardium/Pleural The pericardium appears normal. There is no pericardial effusion. Inferior Vena Cava Normal inferior vena cava with >50% collapse upon inspiration consistent with normal right atrial pressure, 10 mmHg. Aorta The aortic root size at the sinus of Valsalva is normal. Left Ventricular Outflow Tract Name Value Normal LVOT 2D LVOT Diameter 1.9 cm LVOT Doppler LVOT Peak Velocity 89 cm/s LVOT Peak Gradient 3 mmHg LVOT Mean Gradient 2 mmHg LVOT VTI 18 cm LVOT VTI/AV VTI Ratio 0.6 LVOT Stroke Volume 51 ml LVOT CO 4.4 l/min LVOT CI 2.5 l/min/m2 Pulmonic Valve Name Value Normal PV Doppler PV Peak Velocity 104 cm/s PV Peak Gradient 4 mmHg Mitral Valve Name Value Normal MV Doppler MV Peak Gradient 9 mmHg MV Mean Gradient 4 mmHg MV Decel Juab 675 cm/s2 MV PHT 43 ms MV Area (PHT) 5.1 cm2 4.0-5.0 MV Area (Cont Eq VTI) 1.4 cm2 MV Regurgitation Doppler MR Peak Gradient 113 mmHg MV Diastolic Function MV E Peak Velocity 100 cm/s MV A Peak Velocity 115 cm/s MV E/A 0.9 MV Decel Time 148 ms MV Annular TDI MV Septal e' Velocity 5.5 cm/s >=8.0 MV E/e' (Septal) 18.3 <=8.0 MV Lateral e' Velocity 6.7 cm/s >=10.0 MV E/e' (Lateral) 14.9 <=8.0 MV e' Average 6.08 MV E/e' (Average) 16.6 Tricuspid Valve Name Value Normal TV Regurgitation Doppler TR Peak Velocity 226 cm/s TR Peak Gradient 12 mmHg Estimated PAP/RSVP RA Pressure 10 mmHg <=5 PA Systolic Pressure 30 mmHg <36 RV Systolic Pressure 30 mmHg <36 TV Annular TDI TV Lateral Sabrina s' Velocity 13.4 cm/s 9.5-18.7 Aortic Valve Name Value Normal AV Doppler AV Peak Velocity 155 cm/s AV Peak Gradient 10 mmHg AV Mean Gradient 6 mmHg AV VTI 30 cm AV Area (Cont Eq VTI) 1.7 cm2 >=3.0 AV Area (Cont Eq Scott) 1.6 cm2 AV V1/V2 Ratio 0.57 AV Regurgitation 2D LVOT Area 2.8 cm2 Ventricles Name Value Normal LV Dimensions 2D/MM IVS Diastolic Thickness (2D) 1.1 cm 0.6-1.0 LVID Diastole (2D) 3.2 cm 3.8-5.2 LVIW Diastolic Thickness (2D) 1.0 cm 0.6-0.9 LVID Systole (2D) 2.0 cm 2.2-3.5 LVOT Diameter 1.9 cm LV Mass (2D Cubed) 94.79 g 67.00-162.00 LV Mass Index (2D Cubed) 53 g/m2 43-95 Relative Wall Thickness (2D) 0.63 LV Fractional Shortening/Ejection Fraction 2D/MM LV Fractional Shortening (2D) 38 % 27-45 LV EF (2D Teicholz) 69 % 54-74 LV Diastolic Volume (4C MOD) 68 ml LV EF (4C MOD) 59 % LV Diastolic Volume (2C MOD) 51 ml LV EF (2C MOD) 68 % LV Diastolic Volume (BP MOD) 60 ml 46-106 LV Diastolic Volume Index (BP MOD) 34 ml/m2 29-61 LV Systolic Volume (BP MOD) 21 ml 14-42 LV Systolic Volume Index (BP MOD) 12 ml/m2 8-24 LV EF (BP MOD) 65 % 54-74 LV Diastolic Length (4C) 7.4 cm LV Systolic Length (4C) 5.4 cm LV Stroke Volume (4C MOD) 40 ml Atria Name Value Normal LA Dimensions LA Volume (4C A-L) 22 ml LA Volume (BP A-L) 27 ml RA Dimensions RA Area (4C) 10.1 cm2 <=18.0 Report Signatures
[2024-02-21] MEDS: POTASSIUM CHLORIDE 10 MEQ ER TABLET PO ×2 (09:11→16:55)
[2024-02-21] MEDS: hydroCHLOROthiazide 25 MG TABLET PO (09:11)
[2024-02-21] MEDS: EZETIMIBE 10 MG TABLET PO (09:11)
[2024-02-21] MEDS: CHOLECALCIFEROL 1,000 UNITS TABLET 2000 UNITS PO (09:11)
[2024-02-21] MEDS: ENOXAPARIN 40 MG/0.4 ML SYRINGE SUB-Q (09:12)
[2024-02-21 09:31] LABS: NT Pro B Type Natriuretic Pept 207 pg/mL (19.9-100)
[2024-02-21 09:48] LABS: D Dimer 0.28 ug/mL (<0.48)
--- NOTE | 2024-02-21 10:24 | P.CONCA_ITS ---
Assessment and Plan Assessment and plan (1) Chest tightness: Code(s): R07.89 - Other chest pain Status: Acute Assessment and Plan: Possible angina versus heart failure versus pulmonology versus other. Agree wi th D-dimer. Would actually recommend a CT scan chest with and without contrast but will defer this to the hospitalist. Stress test is already ordered and it is reasonable to pursue. Would like to get a 2D echocardiogram Doppler performed for so and if she does have wall motion abnormalities or ca rdiomyopathy, recommendation will be to proceed directly to a cardiac catheterization rather than a stress test. In the meantime start aspirin 81 mg daily, atorvastatin 20 mg daily. Add metoprolol tartrate 25 mg p.o. b.i.d. (2) Dyspnea on exertion: Code(s): R06.09 - Other forms of dyspnea Status: Acute Assessment and Plan: As above. Possible anginal equivalent, heart failure, pulmonology versus other. (3) Palpitations: Code(s): R00.2 - Palpitations Status: Acute Assessment and Plan: Frequent PVC seen on telemetry but the PVCs seem to be asymptomatic (4) Hyperlipidemia LDL goal <70: Code(s): E78.5 - Hyperlipidemia, unspecified Status: Acute Assessment and Plan: Will add atorvastatin (5) Hypertension: Code(s): I10 - Essential (primary) hypertension Status: Acute Assessment and Plan: Adding metoprolol for her PVCs, hypertension and chest pain History of Present Illness History of Present Illness Consult date/time: 02/21/24 10:24 Requesting physician: Shannan Hernandez MD Consult reason: Other (Angina) Reason For Visit: angina Narrative: Reason for consultation: Angina Date of service 02/21/2024 Requesting provider: Dr. Hernandez History: Patient is an 78-year-old female who has a history of hypertension hyperlipidemia who has been feeling poorly for the past 5-6 days. She states that she started to feel very weak and felt as if her heart was racing. This predominantly occurred with activity. She also had some associated shortness of breath with activity and some exertional chest tightness which radiates into her back. She notices this predominantly with exertion and symptoms improve at rest. She does feel a sense shortness of breath even while sitting though. She has not had similar symptoms in the past. She denies any edema, syncope, presyncope, paroxysmal nocturnal dyspnea, orthopnea. EKG does not show acute ST or T-wave abnormalities. Telemetry does show frequent PVCs but she is asymptomatic during these PVCs seen on monitor while performed history and physical. Troponins are negative. Review of Systems Review of Systems: All systems reviewed & are unremarkable except as noted in HPI and below Constitutional: Constitutional: Denies body ache(s) Eyes: Eyes: Denies blurry vision ENT: Reports Normal hearing present Cardiovascular: Cardiovascular: Reports chest pain Respiratory: Respiratory: Reports dyspnea and Reports dyspnea on exertion Gastrointestinal: Gastrointestinal: Denies abdominal pain Genitourinary: Genitourinary: Denies hematuria Musculoskeletal: Musculoskeletal: Denies back pain Integumentary/Breasts: Skin/Breast: Denies pruritus Neurologic: Denies Abnormal speech present Psychiatric: Psychiatric: Denies anxiety Endocrine: Endocrine: Denies excessive sweating Hematologic/Lymphatic: Hematologic/Lymphatic: Denies easy bleeding Allergic/Immunologic: Allergic/Immunologic: Denies GI upset with certain foods PMFSH Past Medical History Medical History (Updated 02/21/24 @ 10:30 by Jesus Hensley MD) Elevated lipids Hypertension [place] planus Surgical History Surgical History H/O breast biopsy H/O: hysterectomy Family History Family History Mother Cerebrovascular accident Diabetes mellitus Grandparent Cerebrovascular accident Father Hypertension Heart valve replaced Lung cancer Other Family history non-contributory Social History Social History Smoking status: Never smoker Alcohol intake: current Alcohol use details: rare alcohol Substance use type: does not use Do You Feel Safe in your Home?: Yes Lack of Transportation: No Lack of Food: Never True Current Housing: I Have Housing Concerned About Future Housing: No Difficulty Paying Gas/Electric Bills: No Difficulty Paying for Meds: No Currently Unemployed: No Education: High School Diploma/GED Difficulty w/ Childcare or Family Care: No Living arrangements: with family Gender identity (if verbalized by the patient): Female Spiritual care concerns: No Meds Home Medications and Allergies Home Medications Medication Instructions Recorded Confirmed Type ezetimibe 10 mg tablet 10 mg PO DAILY 05/06/22 02/20/24 History hydrochlorothiazide 25 mg tablet 25 mg PO DAILY 05/06/22 02/20/24 History potassium chloride 10 mEq 10 meq PO BID 05/06/22 02/20/24 History tablet,extended release(part/cryst) (Klor-Con M) cholecalciferol (vitamin D3) 50 50 mcg PO DAILY 02/20/24 02/20/24 History mcg (2,000 unit) capsule (Vitamin D3) Allergies Allergy/AdvReac Type Severity Reaction Status Date / Time Sulfa (Sulfonamide Allergy Rash Verified 02/20/24 22:48 Antibiotics) Vital Signs Vital Signs - 24 hr 02/20/24 13:38 02/20/24 16:29 02/20/24 16:29 Temperature 36.4 C L Pulse Rate 101 H 98 Respiratory Rate 15 Blood Pressure 153/95 H Pulse Oximetry 99 Oxygen Delivery Room Air Room Air 02/20/24 18:00 02/20/24 16:05 02/20/24 16:16 Temperature 36.6 C Pulse Rate 82 77 69 Respiratory Rate 16 16 15 Blood Pressure 126/80 136/69 146/61 H Pulse Oximetry 98 99 100 Oxygen Delivery 02/20/24 17:02 02/20/24 19:55 02/20/24 18:59 Temperature 36.6 C Pulse Rate 76 71 Respiratory Rate 12 17 Blood Pressure 146/67 H 120/64 129/62 Pulse Oximetry 99 97 Oxygen Delivery 02/20/24 19:00 02/20/24 19:01 02/20/24 19:15 Temperature Pulse Rate 75 90 72 Respiratory Rate 16 25 H 14 Blood Pressure 122/68 Pulse Oximetry 100 98 96 Oxygen Delivery 02/20/24 19:30 02/20/24 19:31 02/20/24 19:45 Temperature Pulse Rate 73 71 75 Respiratory Rate 13 14 15 Blood Pressure 123/63 Pulse Oximetry 96 96 96 Oxygen Delivery 02/20/24 23:17 02/20/24 20:00 02/20/24 20:01 Temperature 36.6 C Pulse Rate 80 71 72 Respiratory Rate 16 13 16 Blood Pressure 110/98 H 128/70 Pulse Oximetry 97 98 97 Oxygen Delivery 02/20/24 20:15 02/20/24 20:30 02/20/24 20:45 Temperature Pulse Rate 79 73 81 Respiratory Rate 15 13 16 Blood Pressure 140/64 Pulse Oximetry 97 98 Oxygen Delivery 02/20/24 20:58 02/20/24 21:00 02/20/24 21:01 Temperature Pulse Rate 68 68 73 Respiratory Rate 14 13 13 Blood Pressure 147/72 H 148/72 H Pulse Oximetry 99 98 97 Oxygen Delivery 02/20/24 21:15 02/20/24 21:30 02/20/24 21:31 Temperature Pulse Rate 72 77 76 Respiratory Rate 13 18 15 Blood Pressure 141/86 H Pulse Oximetry 96 99 98 Oxygen Delivery 02/20/24 21:45 02/20/24 22:00 02/20/24 22:01 Temperature Pulse Rate 71 73 72 Respiratory Rate 16 14 16 Blood Pressure 133/116 H Pulse Oximetry 98 96 99 Oxygen Delivery 02/20/24 22:15 02/20/24 22:30 02/20/24 22:31 Temperature Pulse Rate 75 72 64 Respiratory Rate 15 12 12 Blood Pressure 135/75 Pulse Oximetry 97 96 99 Oxygen Delivery 02/20/24 22:45 02/20/24 23:00 02/20/24 23:01 Temperature Pulse Rate 76 78 72 Respiratory Rate 15 13 14 Blood Pressure 140/64 Pulse Oximetry 98 96 99 Oxygen Delivery 02/20/24 23:33 02/21/24 00:00 02/21/24 02:00 Temperature 36.4 C Pulse Rate 67 71 68 Respiratory Rate 18 Blood Pressure 149/61 H Pulse Oximetry 99 Oxygen Delivery 02/21/24 04:00 02/21/24 05:36 02/21/24 07:59 Temperature 36.5 C Pulse Rate 71 74 Respiratory Rate 18 Blood Pressure 108/61 Pulse Oximetry 95 95 Oxygen Delivery Room Air 02/21/24 08:00 02/21/24 08:00 02/21/24 08:00 Temperature 36.6 C Pulse Rate 77 72 Respiratory Rate 16 Blood Pressure 106/54 L Pulse Oximetry 100 Oxygen Delivery Room Air 02/21/24 10:00 Temperature Pulse Rate 79 Respiratory Rate Blood Pressure Pulse Oximetry Oxygen Delivery Exam Narrative: Patient is awake alert oriented appears to be in no acute distress. Appears stated age Const: General: comfortable and no acute distress HENMT: Face/Nose/Sinus: Normal nares present Mouth: Yes moist mucous membranes Eyes: General: appearance normal, both eyes and all related structures Sclera: sclerae normal Neck: Neck: supple and no JVD Carotids: no bruits Chest: Other: No reproducible chest wall pain to palpation Resp: Effort & Inspection: normal respiratory effort Auscultation: clear to auscultation bilaterally Cardio: Rate: regular rate Rhythm: regular rhythm Heart sounds: no murmurs GI: Inspection: non-distended GI Palp: Yes Soft to palpation Auscultation: normal bowel sounds Skin: General skin exam: normal color and no rashes or lesions noted Neuro: General: gait normal Speech: normal speech Extrem: General: normal to inspection and no edema Psych: Mental Status: mental status grossly normal Affect: normal affect Results Labs and Meds 02/20/24 17:02 02/20/24 17:02 Lab results: Cardiac Enzymes 02/20/24 02/20/24 Range/Units 17:02 20:55 AST 44 H (14-36) U/L Troponin I < 0.012 < 0.012 (0.000-0.034) ng/mL Coagulation 02/20/24 Range/Units 17:02 PT 14.0 (11.1-14.7) Seconds APTT 27.9 (22.3-36.8) Seconds Lipids 02/20/24 Range/Units 20:55 Triglycerides 154 H (<150) mg/dL Cholesterol 197 (0-200) mg/dL CBC 02/20/24 Range/Units 17:02 WBC 7.3 (4.5-10.0) K/mm3 RBC 4.35 (4.2-5.4) M/mm3 Hgb 13.3 (12.0-15.0) g/dL Hct 39.4 (37.0-47.0) % Plt Count 239 (150-375) k/mm3 Lymph # (Auto) 1.54 (0.9-3.2) K/mm3 [place] # (Auto) 0.6 (0.1-0.6) K/mm3 Eos # (Auto) 0.1 (0-0.3) K/mm3 Baso # (Auto) 0.0 (0.0-0.1) K/mm3 Comprehensive Metabolic Panel 02/20/24 Range/Units 17:02 Sodium 136 L (137-145) mmol/L Potassium 3.3 L (3.4-5.0) mmol/L Chloride 100 (98-107) mmol/L Carbon Dioxide 30 (22-30) mmol/L BUN 20 H (7-17) mg/dL Creatinine 0.80 (0.7-1.0) mg/dL Glucose 99 (65-110) mg/dL Calcium 9.1 (8.4-10.2) mg/dL AST 44 H (14-36) U/L ALT 18 (6-35) U/L Alkaline Phosphatase 91 (38-126) U/L Total Protein 8.0 (6.3-8.2) g/dL Albumin 4.5 (3.5-5.1) g/dL Intake and Output 02/20/24 02/21/24 02/21/24 23:59 07:59 15:59 Output Total 0 Balance 0 Output: Urine 0 Other: Intake, Other Source NPO # Unmeasured Voids 2 Patient Weight 02/21/24 23:59 Weight 70.2 kg EKG personally reviewed and interpreted showing normal sinus rhythm, PVCs. Abnormal ECG
[2024-02-21] MEDS: ACETAMINOPHEN 325 MG TABLET 650 MG PO (15:11)
[2024-02-21] MEDS: METOPROLOL TARTRATE 25 MG TABLET PO (20:17)
[2024-02-21 23:20] LABS: Potassium 3.6 mmol/L (3.4-5.0)
[2024-02-22] VITALS (19 sets, daily range): BP systolic 100–125; BP diastolic 48–58; PULSE 64–86; RESP 16–18; TEMP 36.5–36.6; O2SAT 94–98
[2024-02-22] MEDS: hydroCHLOROthiazide 25 MG TABLET PO (08:30)
[2024-02-22] MEDS: ATORVASTATIN 20 MG TABLET PO (08:30)
[2024-02-22] MEDS: POTASSIUM CHLORIDE 10 MEQ ER TABLET PO ×2 (08:30→17:15)
[2024-02-22] MEDS: ENOXAPARIN 40 MG/0.4 ML SYRINGE SUB-Q (08:30)
[2024-02-22] MEDS: METOPROLOL TARTRATE 25 MG TABLET PO ×2 (08:30→20:18)
[2024-02-22] MEDS: CHOLECALCIFEROL 1,000 UNITS TABLET 2000 UNITS PO (08:30)
[2024-02-22] MEDS: ASPIRIN 81 MG ENTERIC TABLET PO (08:30)
--- NOTE | 2024-02-22 10:16 | P.PNIM_ITS ---
Progress Note: A&P Assessment and Plan (1) Palpitations: Code(s): R00.2 - Palpitations Status: Acute (2) Dyspnea on exertion: Code(s): R06.09 - Other forms of dyspnea Status: Acute (3) Chest tightness: Code(s): R07.89 - Other chest pain Status: Acute (4) Hypertension: Code(s): I10 - Essential (primary) hypertension Status: Acute (5) Hyperlipidemia LDL goal <70: Code(s): E78.5 - Hyperlipidemia, unspecified Status: Acute Plan Chest tightness, palpitation, shortness breast patient denies history of cardiac stent Has remote history of cardiac stress test, Patient has been having palpitation in past 3 days, associated with shortness breath and chest tightness Troponin negative EKG showed sinus rhythm echocardiogram Summary 1. Complete two-dimensional, color flow and Doppler transthoracic echocardiogram is performed. 2. Left ventricular chamber dimension is normal. 3. Left ventricular systolic function is normal, estimated at 65-70%. 4. There is mildly increased left ventricular wall thickness. 5. The left ventricular diastolic function is grade I diastolic dysfunction. 6. Left atrial chamber dimension is mildly enlarged. 7. There is mild to moderate mitral valve regurgitation. 8. The mitral valve annulus is moderately calcified. 9. 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 10. There is mild tricuspid valve regurgitation. 11. There is mild aortic valve calcification. Cardiac stress test 1. No definite ischemia or infarct. 2. Normal left ventricular ejection fraction measuring >70%. Received aspirin 325 mg once well continue aspirin 81 mg orally p.o., Follow CTA of the chest: No pulmonary embolus. Appreciate cardiology's input Cardiology has planned cardiac catheterization a.m. 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 p.o. Follow-up stress test Essential hypertension Continue hydrochlorothiazide 25 mg daily p.o. start metoprolol 25 mg q.12 hours p.o. Optimize medication for better blood pressure control Hyperlipidemia Continue Ezetimibe 10 mg daily p.o. Continue Lipitor 20 mg daily p.o. Follow-up lipid panel Subjective Date/time seen: 02/22/24 10:16 Interval history: I saw exam patient today, patient still has intermittent palpitation, denies shortness breath, lightheadedness, Exam Narrative: GENERAL: Pleasant, in no acute distress. Well-nourished. - EYES: EOMI. Anicteric. - HENT: Moist mucous membranes. - LUNGS: Clear to auscultation bilateral ly, no wheezing, rhonchi, or rales. - CARDIOVASCULAR: Regular rate and rhyth m. No murmur. No JVD. - ABDOMEN: Soft, non-tender and non-dist ended. No palpable masses. - EXTREMITIES: No edema. Peripheral puls es 2+. Non-tender. - NEUROLOGIC: No focal neurological defi cits. CN II-XII grossly intact. - PSYCHIATRIC: Awake, Alert and oriented x 3. Appropriate mood and affect. - SKIN: No rashes or lesions. Warm. - LYMPH: No cervical lymphadenopathy. Objective Data Vital Signs Vital Signs: Vital Signs - 24 hr 02/21/24 13:15 02/21/24 12:00 02/21/24 12:00 Temperature 98.6 F Pulse Rate 81 84 Respiratory Rate 16 Blood Pressure 122/66 Pulse Oximetry 100 Oxygen Delivery Room Air 02/21/24 14:00 02/21/24 16:00 02/21/24 16:00 Temperature Pulse Rate 85 79 Respiratory Rate Blood Pressure Pulse Oximetry Oxygen Delivery Room Air 02/21/24 16:00 02/21/24 18:00 02/21/24 20:09 Temperature 98.2 F 97.8 F Pulse Rate 84 81 77 Respiratory Rate 18 18 Blood Pressure 118/51 L 109/49 L Pulse Oximetry 94 94 Oxygen Delivery 02/21/24 20:17 02/21/24 20:00 02/21/24 20:00 Temperature Pulse Rate 81 61 Respiratory Rate Blood Pressure Pulse Oximetry Oxygen Delivery Room Air 02/21/24 22:00 02/21/24 23:40 02/22/24 00:00 Temperature 97.8 F Pulse Rate 66 75 Respiratory Rate 18 Blood Pressure 107/52 L Pulse Oximetry 94 Oxygen Delivery Room Air 02/22/24 00:00 02/22/24 02:00 02/22/24 03:51 Temperature 97.8 F Pulse Rate 65 65 68 Respiratory Rate 18 Blood Pressure 119/49 L Pulse Oximetry 98 Oxygen Delivery 02/22/24 04:00 02/22/24 04:00 02/22/24 06:00 Temperature Pulse Rate 66 65 Respiratory Rate Blood Pressure Pulse Oximetry Oxygen Delivery Room Air 02/22/24 07:47 02/22/24 08:30 02/22/24 08:45 Temperature 97.8 F Pulse Rate 68 76 Respiratory Rate 16 Blood Pressure 100/53 L Pulse Oximetry 94 96 Oxygen Delivery Room Air 02/22/24 08:00 02/22/24 08:00 Temperature Pulse Rate 82 82 Respiratory Rate 16 Blood Pressure Pulse Oximetry 96 Oxygen Delivery Room Air Intake/Output Intake/Output: Intake & Output 02/19/24 02/20/24 02/21/24 02/22/24 23:59 23:59 23:59 23:59 Intake Total 1200 790 Output Total 350 600 Balance 850 190 Meds/Results Medications: Active Medications Generic Name Dose Route Start Last Admin Trade Name Freq PRN Reason Stop Dose Admin Acetaminophen 650 mg 02/20/24 21:50 02/21/24 15:11 Acetaminophen 325 Mg Tablet PO 650 mg Q4H PRN Administration Mild Pain (1-3) or Fever Aspirin 81 mg 02/22/24 09:00 02/22/24 08:30 Aspirin 81 Mg Enteric Tablet PO 81 mg QAM DENNIS Administration Atorvastatin Calcium 20 mg 02/22/24 09:00 02/22/24 08:30 Atorvastatin 20 Mg Tablet PO 20 mg DAILY DENNIS Administration Ezetimibe 10 mg 02/21/24 09:00 02/22/24 08:31 Ezetimibe 10 Mg Tablet PO Not Given DAILY [facility] Enoxaparin Sodium 40 mg 02/21/24 09:00 02/22/24 08:30 Enoxaparin 40 Mg/0.4 Ml Syringe SUB-Q 40 mg DAILY DENNIS Administration Hydrochlorothiazide 25 mg 02/21/24 09:00 02/22/24 08:30 Hydrochlorothiazide 25 Mg Tablet PO 25 mg DAILY DENNIS Administration Metoprolol Tartrate 25 mg 02/21/24 21:00 02/22/24 08:30 Metoprolol Tartrate 25 Mg Tablet PO 25 mg Q12HR DENNIS Administration Ondansetron HCl 4 mg 02/20/24 21:50 Ondansetron Inj 4 Mg/2 Ml Vial IV PUSH Q4H PRN Nausea Perflutren Lipid Microsphere 0 ml 02/21/24 08:33 Perflutren Lipid Microspheres 1.5 Ml Vial Diluted To 10 Ml Total Volume IV PUSH 02/24/24 08:33 ONCE PRN adequate visualization Protocol Potassium Chloride 10 meq 02/21/24 09:00 02/22/24 08:30 Potassium Chloride 10 Meq Er Tablet PO 10 meq BID DENNIS Administration Vitamin D 2,000 units 02/21/24 09:00 02/22/24 08:30 Cholecalciferol 1,000 Units Tablet PO 2,000 units DAILY DENNIS Administration Radiology Results: ITS Impressions Chest X-Ray 02/20/24 15:33 IMPRESSION: No acute cardiopulmonary pathology. Lexiscan Stress Test 02/21/24 14:00 IMPRESSION: 1. No definite ischemia or infarct. 2. Normal left ventricular ejection fraction measuring >70%. Labs Labs: Laboratory Results - last 24 hr 02/21/24 22:19 Potassium 3.6
[2024-02-22 10:47] LABS: Hematocrit 39.8 % (37.0-47.0); Hemoglobin 13.5 g/dL (12.0-15.0); Mean Corpuscular HGB Conc 33.9 g/dl (32-36); Mean Corpuscular Hemoglobin 30.7 pg (26-34); Mean Corpuscular Volume 90.5 fl (80-100); Mean Platelet Volume 11.8 fl (7.4-10.4); Platelet Count Result 270 k/mm3 (150-375); Red Cell Distribution Width 14.1 % (11.5-14.5); White Blood Count 8.1 K/mm3 (4.5-10.0)
[2024-02-22 10:59] LABS: Anion Gap 8 mmol/L (4-12); Blood Urea Nitrogen 20 mg/dL (7-17); Calcium 9.8 mg/dL (8.4-10.2); Carbon Dioxide 29 mmol/L (22-30); Chloride 98 mmol/L (98-107); Estimated CRCL calculation 42 ml/min; Estimated Glomerular Filt Rate > 60; Glucose 104 mg/dL (65-110); Potassium 3.9 mmol/L (3.4-5.0); Sodium 135 mmol/L (137-145)
--- NOTE | 2024-02-22 14:23 | PM.PNCARD ---
Progress Note: A&P Assessment and Plan (1) Angina of effort: Code(s): I20.89 - Other forms of angina pectoris Status: Acute (2) Hypertension: Code(s): I10 - Essential (primary) hypertension Status: Acute (3) Hyperlipidemia LDL goal <70: Code(s): E78.5 - Hyperlipidemia, unspecified Status: Acute Plan 78-year-old woman with a history of hypertension hyperlipidemia presents with chest pain whose clinical presentation is concerning for angina Angina -symptoms have been improving with metoprolol -she was originally scheduled for left heart catheterization today however she had breakfast as well as lunch and will be rescheduled for tomorrow -please keep patient NPO past midnight Hypertension -blood pressure is well controlled on hydrochlorothiazide 25 mg p.o. daily -goal systolic blood pressure less than 130 Hyperlipidemia -continue atorvastatin 20 mg every evening and ezetimibe 10 mg p.o. daily Subjective Date/time seen: 02/22/24 14:23 Interval history: Her chest pain and improved with addition of metoprolol. Exam Const: General: comfortable HENMT: Mouth: Yes moist mucous membranes Eyes: EOM: EOMs intact bilaterally Neck: Neck: no JVD Resp: Effort & Inspection: normal respiratory effort Auscultation: clear to auscultation bilaterally Cardio: Rate: regular rate Rhythm: regular rhythm GI: GI Palp: Yes Soft to palpation Neuro: Speech: normal speech Psych: Affect: normal affect Objective Data Vital Signs Vital Signs: Vital Signs - 24 hr 02/21/24 16:00 02/21/24 16:00 02/21/24 16:00 Temperature 36.8 C Pulse Rate 79 84 Respiratory Rate 18 Blood Pressure 118/51 L Pulse Oximetry 94 Oxygen Delivery Room Air 02/21/24 18:00 02/21/24 20:09 02/21/24 20:17 Temperature 36.6 C Pulse Rate 81 77 81 Respiratory Rate 18 Blood Pressure 109/49 L Pulse Oximetry 94 Oxygen Delivery 02/21/24 20:00 02/21/24 20:00 02/21/24 22:00 Temperature Pulse Rate 61 66 Respiratory Rate Blood Pressure Pulse Oximetry Oxygen Delivery Room Air 02/21/24 23:40 02/22/24 00:00 02/22/24 00:00 Temperature 36.6 C Pulse Rate 75 65 Respiratory Rate 18 Blood Pressure 107/52 L Pulse Oximetry 94 Oxygen Delivery Room Air 02/22/24 02:00 02/22/24 03:51 02/22/24 04:00 Temperature 36.6 C Pulse Rate 65 68 Respiratory Rate 18 Blood Pressure 119/49 L Pulse Oximetry 98 Oxygen Delivery Room Air 02/22/24 04:00 02/22/24 06:00 02/22/24 07:47 Temperature 36.6 C Pulse Rate 66 65 68 Respiratory Rate 16 Blood Pressure 100/53 L Pulse Oximetry 94 Oxygen Delivery 02/22/24 08:30 02/22/24 08:45 02/22/24 08:00 Temperature Pulse Rate 76 82 Respiratory Rate 16 Blood Pressure Pulse Oximetry 96 96 Oxygen Delivery Room Air Room Air 02/22/24 08:00 02/22/24 11:14 Temperature 36.6 C Pulse Rate 82 73 Respiratory Rate 18 Blood Pressure 125/52 L Pulse Oximetry 97 Oxygen Delivery Intake/Output Intake/Output: Intake & Output 02/19/24 02/20/24 02/21/24 02/22/24 23:59 23:59 23:59 23:59 Intake Total 1200 1030 Output Total 350 600 Balance 850 430 Meds/Results Medications: Active Medications Generic Name Dose Route Start Last Admin Trade Name Freq PRN Reason Stop Dose Admin Acetaminophen 650 mg 02/20/24 21:50 02/21/24 15:11 Acetaminophen 325 Mg Tablet PO 650 mg Q4H PRN Administration Mild Pain (1-3) or Fever Aspirin 81 mg 02/22/24 09:00 02/22/24 08:30 Aspirin 81 Mg Enteric Tablet PO 81 mg QAM DENNIS Administration Atorvastatin Calcium 20 mg 02/22/24 09:00 02/22/24 08:30 Atorvastatin 20 Mg Tablet PO 20 mg DAILY DENNIS Administration Ezetimibe 10 mg 02/21/24 09:00 02/22/24 08:31 Ezetimibe 10 Mg Tablet PO Not Given DAILY [facility] Enoxaparin Sodium 40 mg 02/21/24 09:00 02/22/24 08:30 Enoxaparin 40 Mg/0.4 Ml Syringe SUB-Q 40 mg DAILY DENNIS Administration Hydrochlorothiazide 25 mg 02/21/24 09:00 02/22/24 08:30 Hydrochlorothiazide 25 Mg Tablet PO 25 mg DAILY DENNIS Administration Metoprolol Tartrate 25 mg 02/21/24 21:00 02/22/24 08:30 Metoprolol Tartrate 25 Mg Tablet PO 25 mg Q12HR DENNIS Administration Ondansetron HCl 4 mg 02/20/24 21:50 Ondansetron Inj 4 Mg/2 Ml Vial IV PUSH Q4H PRN Nausea Perflutren Lipid Microsphere 0 ml 02/21/24 08:33 Perflutren Lipid Microspheres 1.5 Ml Vial Diluted To 10 Ml Total Volume IV PUSH 02/24/24 08:33 ONCE PRN adequate visualization Protocol Potassium Chloride 10 meq 02/21/24 09:00 02/22/24 08:30 Potassium Chloride 10 Meq Er Tablet PO 10 meq BID DENNIS Administration Vitamin D 2,000 units 02/21/24 09:00 02/22/24 08:30 Cholecalciferol 1,000 Units Tablet PO 2,000 units DAILY DENNIS Administration Radiology Results: ITS Impressions Chest X-Ray 02/20/24 15:33 IMPRESSION: No acute cardiopulmonary pathology. Lexiscan Stress Test 02/21/24 14:00 IMPRESSION: 1. No definite ischemia or infarct. 2. Normal left ventricular ejection fraction measuring >70%. Chest CTA 02/22/24 12:48 IMPRESSION: 1. No pulmonary embolus. Labs Labs: Laboratory Results - last 24 hr 02/21/24 02/22/24 22:19 10:42 WBC 8.1 RBC 4.40 Hgb 13.5 Hct 39.8 MCV 90.5 MCH 30.7 MCHC 33.9 RDW 14.1 Plt Count 270 MPV 11.8 H Sodium 135 L Potassium 3.6 3.9 Chloride 98 Carbon Dioxide 29 Anion Gap 8 BUN 20 H Creatinine 0.80 Estim Creat Clear Calc 42 Estimated GFR > 60 Glucose 104 Calcium 9.8
[2024-02-23] VITALS (10 sets, daily range): BP systolic 101–106; BP diastolic 46–55; PULSE 60–74; RESP 18–20; TEMP 36.5–36.6; O2SAT 97–100
[2024-02-23] MEDS: POTASSIUM CHLORIDE 10 MEQ ER TABLET PO (08:17)
[2024-02-23] MEDS: ATORVASTATIN 20 MG TABLET PO (08:18)
[2024-02-23] MEDS: EZETIMIBE 10 MG TABLET PO (08:18)
[2024-02-23] MEDS: METOPROLOL TARTRATE 25 MG TABLET PO (08:18)
[2024-02-23] MEDS: CHOLECALCIFEROL 1,000 UNITS TABLET 2000 UNITS PO (08:18)
[2024-02-23] MEDS: ASPIRIN 81 MG ENTERIC TABLET PO (08:18)
--- NOTE | 2024-02-23 09:15 | PM.PNCARD ---
Progress Note: A&P Assessment and Plan (1) Chest tightness: Code(s): R07.89 - Other chest pain Status: Acute Assessment and Plan: Atypical chest pain. Echocardiogram shows LVEF 65-70% with no appreciable wall motion abnormalities. Lexiscan stress test is negative for ischemia or infarct. Chest CTA with no pulmonary embolus. Possiblity of LHC was discussed, however, given negative stress test, do not need to pursue LHC at this time; patient would prefer to not undergo LHC at this time if not necessary as well. Will arrange outpatient follow up in our office (patient prefers to see Dr. Hutton as her sees him). (2) Dyspnea on exertion: Code(s): R06.09 - Other forms of dyspnea Status: Acute Assessment and Plan: As above. (3) Palpitations: Code(s): R00.2 - Palpitations Status: Acute Assessment and Plan: Frequent PVCs noted on tele. Continue Metoprolol. Will have patient wear an event monitor upon discharge. (4) Hypertension: Code(s): I10 - Essential (primary) hypertension Status: Acute Assessment and Plan: Stable. Continue HCTZ, Metoprolol. (5) Hyperlipidemia LDL goal <70: Code(s): E78.5 - Hyperlipidemia, unspecified Status: Acute Assessment and Plan: Continue Atorvastatin. Plan Recommendations and plan discussed with Hospitalist. Okay to discharge home from a cardiac standpoint. Event monitor ordered. Will arrange outpatient follow up. Subjective Date/time seen: 02/23/24 09:15 Interval history: Reason for visit: Palpitations, chest pain HPI: Patient is an 78-year-old female who has a history of hypertension hyperlipidemia who has been feeling poorly for the past 5-6 days. She states that she started to feel very weak and felt as if her heart was racing. This predominantly occurred with activity. She also had some associated shortness of breath with activity and some exertional chest tightness which radiates into her back. She notices this predominantly with exertion and symptoms improve at rest. She does feel a sense shortness of breath even while sitting though. She has not had similar symptoms in the past. She denies any edema, syncope, presyncope, paroxysmal nocturnal dyspnea, orthopnea. EKG does not show acute ST or T-wave abnormalities. Telemetry does show frequent PVCs but she is asymptomatic during these PVCs seen on monitor while performed history and physical. Troponins are negative. Date of service 02/21: Her chest pain and improved with addition of metoprolol. Date of service 02/22: Feeling well today. No chest pain. Review of Systems Review of Systems: All systems reviewed & are unremarkable except as noted in HPI and below (HPI) Exam Const: General: comfortable and no acute distress HENMT: Mouth: Yes moist mucous membranes Eyes: General: appearance normal, both eyes and all related structures Sclera: sclerae normal Resp: Effort & Inspection: normal respiratory effort Cardio: Rate: regular rate Rhythm: regular rhythm Skin: General skin exam: normal color Neuro: Speech: normal speech Psych: Mental Status: mental status grossly normal Affect: normal affect Objective Data Vital Signs Vital Signs: Vital Signs - 24 hr 02/22/24 11:14 02/22/24 15:34 02/22/24 10:00 Temperature 36.6 C 36.5 C Pulse Rate 73 75 76 Respiratory Rate 18 18 Blood Pressure 125/52 L 104/48 L Pulse Oximetry 97 98 Oxygen Delivery 02/22/24 12:00 02/22/24 14:00 02/22/24 16:00 Temperature Pulse Rate 66 73 75 Respiratory Rate Blood Pressure Pulse Oximetry Oxygen Delivery 02/22/24 12:00 02/22/24 16:00 02/22/24 20:02 Temperature 36.5 C Pulse Rate 75 75 86 Respiratory Rate 18 18 18 Blood Pressure 107/58 L Pulse Oximetry 98 98 97 Oxygen Delivery Room Air Room Air 02/22/24 20:18 02/22/24 20:00 02/22/24 20:00 Temperature Pulse Rate 78 77 Respiratory Rate Blood Pressure Pulse Oximetry Oxygen Delivery Room Air 02/22/24 22:00 02/23/24 00:00 02/23/24 00:04 Temperature 36.5 C Pulse Rate 64 68 Respiratory Rate 18 Blood Pressure 105/55 L Pulse Oximetry 97 Oxygen Delivery Room Air 02/23/24 00:00 02/23/24 02:00 02/23/24 04:39 Temperature 36.6 C Pulse Rate 60 66 65 Respiratory Rate 18 Blood Pressure 106/46 L Pulse Oximetry 98 Oxygen Delivery 02/23/24 04:00 02/23/24 04:00 02/23/24 06:00 Temperature Pulse Rate 70 62 Respiratory Rate Blood Pressure Pulse Oximetry Oxygen Delivery Room Air 02/23/24 07:53 02/23/24 08:18 Temperature 36.5 C Pulse Rate 68 68 Respiratory Rate 20 Blood Pressure 101/49 L Pulse Oximetry 100 Oxygen Delivery Intake/Output Intake/Output: Intake & Output 02/20/24 02/21/24 02/22/24 02/23/24 23:59 23:59 23:59 23:59 Intake Total 1200 1570 Output Total 350 1550 300 Balance 850 20 -300 Meds/Results Medications: Active Medications Generic Name Dose Route Start Last Admin Trade Name Freq PRN Reason Stop Dose Admin Acetaminophen 650 mg 02/20/24 21:50 02/21/24 15:11 Acetaminophen 325 Mg Tablet PO 650 mg Q4H PRN Administration Mild Pain (1-3) or Fever Aspirin 81 mg 02/22/24 09:00 02/23/24 08:18 Aspirin 81 Mg Enteric Tablet PO 81 mg QAM DENNIS Administration Atorvastatin Calcium 20 mg 02/22/24 09:00 02/23/24 08:18 Atorvastatin 20 Mg Tablet PO 20 mg DAILY DENNIS Administration Ezetimibe 10 mg 02/21/24 09:00 02/23/24 08:18 Ezetimibe 10 Mg Tablet PO 10 mg DAILY DENNIS Administration Enoxaparin Sodium 40 mg 02/21/24 09:00 02/23/24 07:52 Enoxaparin 40 Mg/0.4 Ml Syringe SUB-Q Not Given DAILY [facility] Hydrochlorothiazide 25 mg 02/21/24 09:00 02/23/24 07:53 Hydrochlorothiazide 25 Mg Tablet PO Not Given DAILY [facility] Metoprolol Tartrate 25 mg 02/21/24 21:00 02/23/24 08:18 Metoprolol Tartrate 25 Mg Tablet PO 25 mg Q12HR DENNIS Administration Ondansetron HCl 4 mg 02/20/24 21:50 Ondansetron Inj 4 Mg/2 Ml Vial IV PUSH Q4H PRN Nausea Perflutren Lipid Microsphere 0 ml 02/21/24 08:33 Perflutren Lipid Microspheres 1.5 Ml Vial Diluted To 10 Ml Total Volume IV PUSH 02/24/24 08:33 ONCE PRN adequate visualization Protocol Potassium Chloride 10 meq 02/21/24 09:00 02/23/24 08:17 Potassium Chloride 10 Meq Er Tablet PO 10 meq BID DENNIS Administration Vitamin D 2,000 units 02/21/24 09:00 02/23/24 08:18 Cholecalciferol 1,000 Units Tablet PO 2,000 units DAILY DENNIS Administration Radiology Results: ITS Impressions Chest X-Ray 02/20/24 15:33 IMPRESSION: No acute cardiopulmonary pathology. Lexiscan Stress Test 02/21/24 14:00 IMPRESSION: 1. No definite ischemia or infarct. 2. Normal left ventricular ejection fraction measuring >70%. Chest CTA 02/22/24 12:48 IMPRESSION: 1. No pulmonary embolus. Labs Labs: Laboratory Results - last 24 hr 02/22/24 10:42 WBC 8.1 RBC 4.40 Hgb 13.5 Hct 39.8 MCV 90.5 MCH 30.7 MCHC 33.9 RDW 14.1 Plt Count 270 MPV 11.8 H Sodium 135 L Potassium 3.9 Chloride 98 Carbon Dioxide 29 Anion Gap 8 BUN 20 H Creatinine 0.80 Estim Creat Clear Calc 42 Estimated GFR > 60 Glucose 104 Calcium 9.8
--- NOTE | 2024-02-23 10:34 | P.DS_ITS ---
DS: Admitting Diagnosis Discharge Date 02/23/2024 Admitting Diagnosis Palpitations DS: Discharge Diagnosis Discharge Diagnosis (1) Palpitations: Code(s): R00.2 - Palpitations Status: Acute (2) Dyspnea on exertion: Code(s): R06.09 - Other forms of dyspnea Status: Acute (3) Chest tightness: Code(s): R07.89 - Other chest pain Status: Acute (4) Hypertension: Code(s): I10 - Essential (primary) hypertension Status: Acute (5) Hyperlipidemia LDL goal <70: Code(s): E78.5 - Hyperlipidemia, unspecified Status: Acute DS: Summary Hospital Course Hospital Course: Patient presented with Chest tightness, palpitation, shortness of breath. patient denies history of cardiac stent Has remote history of cardiac stress test, Patient has been having palpitation in past 3 days, associated with shortness breath and chest tightness Troponin negative EKG showed sinus rhythm echocardiogram Summary 1. Complete two-dimensional, color flow and Doppler transthoracic echocardiogram is performed. 2. Left ventricular chamber dimension is normal. 3. Left ventricular systolic function is normal, estimated at 65-70%. 4. There is mildly increased left ventricular wall thickness. 5. The left ventricular diastolic function is grade I diastolic dysfunction. 6. Left atrial chamber dimension is mildly enlarged. 7. There is mild to moderate mitral valve regurgitation. 8. The mitral valve annulus is moderately calcified. 9. 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 10. There is mild tricuspid valve regurgitation. 11. There is mild aortic valve calcification. Cardiac stress test 1. No definite ischemia or infarct. 2. Normal left ventricular ejection fraction measuring >70%. Received aspirin 325 mg once well continue aspirin 81 mg orally p.o., Follow CTA of the chest: No pulmonary embolus. Appreciate cardiology's input Possibility of LAC was discussed however given negative stress test, left heart catheterization was not recommended. 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 p.o. Follow-up stress test Essential hypertension Continue hydrochlorothiazide 25 mg daily p.o. start metoprolol 25 mg q.12 hours p.o. Optimize medication for better blood pressure control Hyperlipidemia Continue Ezetimibe 10 mg daily p.o. Continue Lipitor 20 mg daily p.o. Follow-up lipid panel Time Spent with Patient Time attestation: Total time spent providing and/or coordinating discharge services: Exam Narrative: GENERAL: Pleasant, in no acute distress. Well-nourished. - EYES: EOMI. Anicteric. - HENT: Moist mucous membranes. - LUNGS: Clear to auscultation bilateral ly, no wheezing, rhonchi, or rales. - CARDIOVASCULAR: Regular rate and rhyth m. No murmur. No JVD. - ABDOMEN: Soft, non-tender and non-dist ended. No palpable masses. - EXTREMITIES: No edema. Peripheral puls es 2+. Non-tender. - NEUROLOGIC: No focal neurological defi cits. CN II-XII grossly intact. - PSYCHIATRIC: Awake, Alert and oriented x 3. Appropriate mood and affect. - SKIN: No rashes or lesions. Warm. - LYMPH: No cervical lymphadenopathy. DS: Data Data Completed and Pending Completed studies during hospitalization: Exam Type: CA echo doppler color flow Study Info Complete two-dimensional, color flow and Doppler transthoracic echocardiogram is performed. Summary 1. Complete two-dimensional, color flow and Doppler transthoracic echocardiogram is performed. 2. Left ventricular chamber dimension is normal. 3. Left ventricular systolic function is normal, estimated at 65-70%. 4. There is mildly increased left ventricular wall thickness. 5. The left ventricular diastolic function is grade I diastolic dysfunction. 6. Left atrial chamber dimension is mildly enlarged. 7. There is mild to moderate mitral valve regurgitation. 8. The mitral valve annulus is moderately calcified. 9. 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 10. There is mild tricuspid valve regurgitation. 11. There is mild aortic valve calcification. Left Ventricle Left ventricular chamber dimension is normal. Left ventricular systolic function is normal, estimated at 65-70%. There is mildly increased left ventricular wall thickness. The left ventricular diastolic function is grade I diastolic dysfunction. Right Ventricle Right ventricular chamber dimension is normal. Right ventricular systolic function is normal. Left Atria Left atrial chamber dimension is mildly enlarged. Right Atria Right atrial chamber dimension is normal. Aortic Valve The aortic valve is trileaflet. There is no aortic valve stenosis. There is trace aortic valve regurgitation. There is mild aortic valve calcification. Pulmonic Valve The pulmonic valve is normal. There is no pulmonic valve stenosis. There is trace pulmonic regurgitation. 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 There is no mitral valve stenosis. There is mild to moderate mitral valve regurgitation. The mitral valve annulus is moderately calcified. Tricuspid Valve The tricuspid valve leaflets are normal. There is no significant tricuspid valve stenosis. There is mild tricuspid valve regurgitation. No pulmonary hypertension, estimated pulmonary arterial systolic pressure is 30 mmHg. Pericardium/Pleural The pericardium appears normal. There is no pericardial effusion. Inferior Vena Cava Normal inferior vena cava with >50% collapse upon inspiration consistent with normal right atrial pressure, 10 mmHg. Aorta The aortic root size at the sinus of Valsalva is normal. Labs on day of discharge: Labs from last 24 hours 02/22/24 10:42 WBC 8.1 RBC 4.40 Hgb 13.5 Hct 39.8 MCV 90.5 MCH 30.7 MCHC 33.9 RDW 14.1 Plt Count 270 MPV 11.8 H Sodium 135 L Potassium 3.9 Chloride 98 Carbon Dioxide 29 Anion Gap 8 BUN 20 H Creatinine 0.80 Estim Creat Clear Calc 42 Estimated GFR > 60 Glucose 104 Calcium 9.8 Imaging Radiologist's impression: ITS Impressions Chest X-Ray 02/20/24 15:33 IMPRESSION: No acute cardiopulmonary pathology. Lexiscan Stress Test 02/21/24 14:00 IMPRESSION: 1. No definite ischemia or infarct. 2. Normal left ventricular ejection fraction measuring >70%. Chest CTA 02/22/24 12:48 IMPRESSION: 1. No pulmonary embolus. Discharge Plan Discharge Attending physician on discharge: Saroj Rodriguez Consulting providers: Jesus Hensley Discharging Clinician: Saroj Rodriguez Anticipated Discharge Date/Time: 02/23/24 10:37 Patient Disposition: Home, Self-Care Activity: as tolerated Diet: heart healthy Patient Instructions: Antibiotic Form, Metoprolol (By mouth), Pain Management (DC) Stand Alone Forms: General Discharge Information Follow-up/Referrals: Ildefonso Hutton MD [Physician] - 4 Weeks Cardoza,Ildefonso Becerra MD [Primary Care Provider] - 1 Week Discharge Medications: New atorvastatin 20 mg Tablet 20 mg PO DAILY Qty: 30 0RF aspirin 81 mg Tablet,Delayed Release (Dr/Ec) 81 mg PO QAM Qty: 30 0RF metoprolol tartrate 25 mg Tablet 25 mg PO Q12HR Qty: 60 0RF Continued hydrochlorothiazide 25 mg tablet 25 mg PO DAILY ezetimibe 10 mg tablet 10 mg PO DAILY potassium chloride [Klor-Con M10] 10 mEq tablet,ER particles/crystals 10 meq PO BID cholecalciferol (vitamin D3) [Vitamin D3] 50 mcg (2,000 unit) Capsule 50 mcg PO DAILY Other Ambulatory Orders: CA cardiac event monitor (Routine) Timeframe: 2 Weeks Location: Determined by Patient Ordered By: Natali Davis Date of admission: 02/20/24 21:50 Primary Care Provider: Nani,Ildefonso Becerra Admitting Provider: Gissell Trujillo Attending physician on admission: Gissell Trujillo Condition: Stable
== END 2024-02-23 11:55 | disposition home or self-care (01) ==
LOC: ANHED 19:17 → ANHIMU 22:48
PROVIDERS: Hospitalist; Nurse Practitioner Gerontology; Physician Assistant; Student in an Organized Health Care Education/Training Program; Admitting Provider Internal Medicine; Emergency Provider Emergency Medicine; PCP Internal Medicine; Visit Provider Internal Medicine
DX: I20.89 Other forms of angina pectoris (principal); R00.2 Palpitations; R06.09 Other forms of dyspnea; I49.3 Ventricular premature depolarization; I10 Essential (primary) hypertension; E78.5 Hyperlipidemia, unspecified
CPT/HCPCS: 36415; 71046; 71275; 78452; 80048; 80053; 80061; 83690; 83735; 83880; 84100; 84132; 84443; 84484; 85025; 85027; 85380; 85610; 85730; 93005; 93017; 93306; 99285; A9270; A9502; G0378; J1650; J2785; Q9967

== ENCOUNTER 2024-10-07 09:46 | Emergency (ER) | payer MEDICARE, SELFPAY ==
--- NOTE | ~2024-10-07 | XR_ITS ---
EXAMINATION: XR chest 2V DATE: 10/07/2024 10:42 INDICATION: Cough TECHNIQUE: PA and lateral views of the chest were obtained. COMPARISON: Chest radiograph dated 02/20/[address] dated 02/22/2024 FINDINGS: Minimal linear discoid atelectasis/scarring the right costophrenic angle. No other airspace opacities , pulmonary edema, pleural effusion or pneumothorax. The cardiomediastinal silhouette is normal. Mild thoracic spondylosis. IMPRESSION: 1. Minimal discoid atelectasis at the right costophrenic angle. No other acute cardiopulmonary diseas e. Reviewed, dictated and finalized at location B. IMPRESSION: 1. Minimal discoid atelectasis at the right costophrenic angle. No other acute cardiopulmonary disease.
--- NOTE | 2024-10-07 09:50 | ED.URI ---
HPI - URI/Sore Throat General Chief Complaint: Upper Respiratory Infection Stated Complaint: Cough/Sore Throat Source: patient and RN notes reviewed Mode of arrival: ambulatory Limitations: no limitations History of Present Illness HPI Narrative: Patient is an 79-year-old female who presents to the [facility] with complaints of cough and congestion since last Monday. Patient endorses nasal congestion and drainage. States that she has been experiencing a frequent nonproductive cough. She denies chest pain or shortness of breath. Denies known fevers. Patient states that she has had a sore throat but denies ear pain. She is unsure of any known sick contacts. Related Data Home Medications ?Medication ?Instructions ?Recorded ?Confirmed ?Last Taken ?Type ezetimibe 10 mg tablet 10 mg PO DAILY 05/06/22 10/07/24 02/20/24 History hydrochlorothiazide 25 mg tablet 25 mg PO DAILY 05/06/22 10/07/24 02/20/24 History cholecalciferol (vitamin D3) 50 50 mcg PO DAILY 02/20/24 10/07/24 02/20/24 History mcg (2,000 unit) capsule (Vitamin D3) Allergies Allergy/AdvReac Type Severity Reaction Status Date / Time Sulfa (Sulfonamide Allergy Rash Verified 10/07/24 09:56 Antibiotics) Review of Systems Review of Systems: CONSTITUTIONAL: Denies fever, chills, or sweats. EYES: Denies visual changes, redness, or discharge. ENT: Denies otalgia but reports congestion and sore throat CARDIOVASCULAR: Denies chest pain, palpitations, or edema. RESPIRATORY:Reports cough but denies dyspnea. GASTROINTESTINAL: Denies abdominal pain, nausea, vomiting, or diarrhea. GENITOURINARY: Denies dysuria or hematuria. SKIN: Denies rash or itching. MUSCULOSKELETAL: Denies back pain, joint pain, or myalgia. NEUROLOGIC: Denies headache, numbness, or weakness. Pertinent positives per HPI. [facility] Past Medical History Medical History Bilateral impacted cerumen Lichen planus Elevated lipids Hypertension Surgical History Surgical History H/O breast biopsy H/O: hysterectomy Family History Family History Mother Cerebrovascular accident Diabetes mellitus Grandparent Cerebrovascular accident Father Hypertension Heart valve replaced Lung cancer Other Family history non-contributory Social History Social History Smoking status: Never smoker Alcohol intake: current Alcohol use details: rare alcohol Substance use type: does not use Do You Feel Safe in your Home?: Yes Lack of Transportation: No Lack of Food: Never True Current Housing: I Have Housing Concerned About Future Housing: No Difficulty Paying Gas/Electric Bills: No Difficulty Paying for Meds: No Currently Unemployed: No Education: High School Diploma/GED Difficulty w/ Childcare or Family Care: No Living arrangements: with family Gender identity (if verbalized by the patient): Female Spiritual care concerns: No Comments At the time of my signature, I reviewed and agree with the nursing past medical, surgical, social, and family history. There is no relevant family history pertinent to the patient complaint. Exam Narrative: GENERAL: This is a well-nourished, well-developed patient, in no apparent distress. HEAD: normocephalic, atraumatic. EYES: PERRL. Sclera clear/white. Vision is grossly intact. EARS: External ears normal, auditory canals clear and without drainage, TMs normal without perforation. Hearing grossly intact. NOSE: External nose normal with no obvious nasal discharge, nares without redness, no rhinorrhea. THROAT: Mucous membranes moist, posterior pharynx clear. NECK: Neck supple, non-tender without lymphadenopathy, masses or thyromegaly. CARDIOVASCULAR: Regular rate and rhythm without murmurs, gallops, or rubs. RESPIRATORY: Clear to auscultation. Breath sounds equal bilaterally. No wheezes, rales, or rhonchi. GASTROINTESTINAL: Abdomen soft, non-tender, nondistended. Bowel sounds are active. No hepato-splenomegaly, or palpable masses. No guarding. SKIN: warm, intact with no suspicious lesions or rash, good texture and turgor. NEURO: awake, alert, and oriented to person, place and time. There were no obvious focal neurologic abnormalities. EXTREMITIES: No clubbing, cyanosis, or edema. No joint tenderness, effusion, or edema noted. BACK: Nontender without deformity or crepitance. No flank tenderness. Course Course Level of Care: Express Care Visit Vital Signs Vital signs: Vital Signs Temperature 98.4 F 10/07/24 09:57 Pulse Rate 95 10/07/24 09:57 Respiratory Rate 16 10/07/24 09:57 Blood Pressure 121/76 10/07/24 09:57 Pulse Oximetry 97 10/07/24 09:57 Oxygen Delivery Room Air 10/07/24 09:57 Temperature 98.4 F 10/07/24 09:57 Pulse Rate 95 10/07/24 09:57 Respiratory Rate 16 10/07/24 09:57 Blood Pressure 121/76 10/07/24 09:57 Pulse Oximetry 97 10/07/24 09:57 Oxygen Delivery Room Air 10/07/24 09:57 Reviewed MDM - URI/Sore Throat MDM Narrative Medical decision making narrative: Go to the ER for any new or worsening symptoms. Avoid smoking/second-hand smoke. Continue to take Tylenol or Motrin for pain. Increase your Vitamin C intake. Use a humidifier or vaporizer at night. Take Medications as prescribed. Drink plenty of water. 8-10 glasses per day. Use flonase 2 times per day for 5 days then as needed Take mucinex 2 times per day and be sure to take with 8oz of water. Follow up with Primary provider if not getting better. Differential Diagnosis Differential diagnosis: Likely upper respiratory infection, viral infection, bronchitis, pharyngitis and other (strep, covid, pneumonia) Lab Data Attestation: I reviewed the patient's lab results. Labs: Lab Results 10/07/24 Range/Units 10:01 POC SARS CoV-2 Ag Negative (Negative) POC Grp A Strep Screen Negative (Negative) Imaging Data Attestation: I personally reviewed and interpreted this imaging study as follows: Radiologist's impression: [facility] [address] [place] [address] [place] [address] XRay Report Signed Patient: Jessica Claudio : 1945 MR#: [id number] Age: 79 Acct:[id number] Loc: [id number] ADM Date: 10/07/24Attending Dr: Ordering Physician: Ginette Caicedo APRN Date of Service: 10/07/24 Procedure(s): XR chest 2V Accession Number(s): [id number] cc: Ginette Caicedo APRN; Nani, Ildefonso Becerra MD~ EXAMINATION: XR chest 2V DATE: 10/07/2024 10:42 INDICATION: Cough TECHNIQUE: PA and lateral views of the chest were obtained. COMPARISON: Chest radiograph dated 02/20/[address] dated 02/22/2024 FINDINGS: Minimal linear discoid atelectasis/scarring the right costophrenic angle. No other airspace opacities, pulmonary edema, pleural effusion or pneumothorax. The cardiomediastinal silhouette is normal. Mild thoracic spondylosis. IMPRESSION: 1. Minimal discoid atelectasis at the right costophrenic angle. No other acute cardiopulmonary disease. Reviewed, dictated and finalized at location B. Please be advised this is a medical document. It is intended for [id number] communication. It is written in medical language and may contain unfamiliar abbreviations or verbiage. Medical documents are intended to carry relevant information, facts as evident, and the clinical opinion of the practitioner at the time of the encounter. This report may have been done utilizing a voice recognition system. Attempts have been made to correct errors. However, there may be uncorrected grammatical, spelling, and recognition errors present. The file time of this note does not necessarily represent the time of service. Dictated By: Jermaine Wilkinson MD 10/07/24 1043 Signed By: <Electronically signed by Jermaine Wilkinson MD in OV> 10/07/24 1044 Critical Care Time Critical Care Time Critical Care Time: No Discharge Plan Discharge Clinical Impression: Acute bacterial sinusitis Patient Disposition: Home Condition: Stable Instructions: Antibiotic Form, Sinusitis (ED) Additional Instructions: Go to the ER for any new or worsening symptoms. Avoid smoking/second-hand smoke. Continue to take Tylenol or Motrin for pain. Increase your Vitamin C intake. Use a humidifier or vaporizer at night. Take Medications as prescribed. Drink plenty of water. 8-10 glasses per day. Use flonase 2 times per day for 5 days then as needed Take mucinex 2 times per day and be sure to take with 8oz of water. Follow up with Primary provider if not getting better. Patient Language: Armenian Prescriptions: New amoxicillin-pot clavulanate 875-125 mg tablet 1 tablet PO Q12H 10 Days Qty: 20 0RF fluticasone propionate [Flonase Allergy Relief] 50 mcg/actuation spray,suspension 1 spray intranasal BID Qty: 16 0RF Rx Instructions: administer into each nostril No Action hydrochlorothiazide 25 mg tablet 25 mg PO DAILY ezetimibe 10 mg tablet 10 mg PO DAILY cholecalciferol (vitamin D3) [Vitamin D3] 50 mcg (2,000 unit) Capsule 50 mcg PO DAILY atorvastatin 20 mg Tablet 20 mg PO DAILY Qty: 30 0RF aspirin 81 mg Tablet,Delayed Release (Dr/Ec) 81 mg PO QAM Qty: 30 0RF Follow-up/Referrals: Nani,Ildefonso Becerra MD [Primary Care Provider] - Time of Disposition: 10:52
[2024-10-07 09:57] VITALS: BP 121/76; PULSE 95; RESP 16; TEMP 36.9; O2SAT 97
[2024-10-07 10:25] LABS: EDCOVIDSCREEN Negative (Negative); EDSTREPNEGPOS1 Negative (Negative)
== END 2024-10-07 10:58 | disposition home or self-care (01) ==
PROVIDERS: Emergency Provider Nurse Practitioner; PCP Internal Medicine
DX: J01.90 Acute sinusitis, unspecified (principal); Z20.822 Contact with and (suspected) exposure to COVID-19; I10 Essential (primary) hypertension
CPT/HCPCS: 71046; 87081; 87426; 87880; 99213; G0463